=== PATIENT | female | born 1950 | race Caucasian/White ===

== ENCOUNTER 2016-10-22 07:58 | Outpatient (CLI) | payer MEDICARE | END 2016-10-22 07:59 | disposition home or self-care (01) | DX: E78.00 Pure hypercholesterolemia, unspecified (principal); K52.9 Noninfective gastroenteritis and colitis, unspecified; L40.9 Psoriasis, unspecified ==

== ENCOUNTER 2017-01-31 10:06 | Outpatient (CLI) | payer MEDICARE ==
--- NOTE | 2017-02-02 08:06 | Mammography Report ---
DIGITAL SCREENING MAMMOGRAM: 01/31/2017 CLINICAL INDICATION: A 66-year-old for screening. COMPARISON: 08/2015, 08/2014, 07/2013, 07/2012, 07/2011, 05/2010, 05/2009, 04/2008, 04/2007 TECHNIQUE: Routine CC and MLO projections were obtained of the breasts. FINDINGS: Scattered fibroglandular tissue is present within the breasts. There are no dominant mally s, suspicious microcalcifications, or secondary signs of malignancy. In comparison to the previous st udies, there are no significant changes. ASSESSMENT: NO MAMMOGRAPHIC EVIDENCE OF MALIGNANCY. NO SIGNIFICANT INTERVAL CHANGES. RECOMMENDATION: Screening mammography is recommended annually. BIRADS category 1 - negative. STANDARD QUALIFYING STATEMENTS 1. This examination was reviewed with the aid of Computed-Aided Detection (CAD). 2. A negative or benign imaging report should not delay biopsy if clinically suspicious findings are present. Consider surgical consultation if warranted. More than 5% of cancers are not identified by i maging. 3. Dense breasts may obscure an underlying neoplasm. JOB #: [id number] EXT JOB #:[id number]
== END 2017-01-31 10:07 | disposition home or self-care (01) ==
LOC: DI 10:06
PROVIDERS: ATTEND Physician Assistant Medical
DX: Z12.31 Encounter for screening mammogram for malignant neoplasm of breast (principal)
CPT/HCPCS: 77067

== ENCOUNTER 2017-11-07 10:12 | Outpatient (CLI) | payer MEDICARE ==
--- NOTE | 2017-11-07 15:33 | DEXA Report ---
DEXA SCAN: 11/07/2017 CLINICAL INDICATION: Bone disorder. TECHNIQUE: Dual energy x-ray absorptiometry (DXA) was performed on a [employer] system. Regions measured are the AP spine, femoral neck, and, if needed, forearm. COMPARISON: None. In accordance with the International Society for Clinical Densitometry (ISCD) guidelines, data from previous exams may be reanalyzed using current recommendations and techniques. This is done to allow a more accurate basis for comparison with the current study. FINDINGS Data for the lumbar spine is as follows: REGION BMD (g/cm/cm) T-SCORE Z-SCORE L1 0.938 -1.6 0.0 L2 1.017 -1.5 0.0 L3 1.102 -0.8 0.7 L4 1.042 -1.3 0.3 L1-L4 1.031 -1.2 0.3 NOTE: All evaluable vertebrae are used for classification. Data for the hip is as follows: REGION BMD (g/cm/cm) T-SCORE Z-SCORE Neck 0.885 -1.1 0.5 TOTAL 0.915 -0.7 0.6 NOTE: The femoral neck or total proximal femur, whichever is lowest, is used for classification. IMPRESSION WHO CLASSIFICATION BASED ON THE INTERNATIONAL REFERENCE STANDARD IS OSTEOPENIA. FRACTURE RISK IS INCREASED. RECOMMENDATION: Patients with diagnosis of osteoporosis or osteopenia should have regular bone mineral density assessment. For those eligible for Medicare, routine testing is allowed once every 2 years. Testing frequency can be increased for patients who have rapidly progressing disease or for those who are receiving medical therapy to restore bone mass. COMMENT World Health Organization (WHO) definitions for osteoporosis and osteopenia: NORMAL BMD: T-score at 1.0 or higher, fracture risk is low. OSTEOPENIA BMD: T-score between 1.0 and -2.5, fracture risk is increased. OSTEOPOROSIS BMD: T-score at 2.5 or lower, fracture risk high. National Osteoporosis Foundation recommends: 1. Obtain adequate dietary calcium (at least 1200 mg per day) and vitamin D (400 -800 international units per day). 2. Participate, as appropriate, in regular weightbearing and muscle- strengthening exercise. 3. Avoid tobacco use and reduce alcohol and caffeine intake. 4. For more detailed information see the website at www.NOF.org. TD: 11/07/2017 10:56 MTDDeon
== END 2017-11-07 10:13 | disposition home or self-care (01) ==
LOC: DI 10:12
PROVIDERS: ATTEND Physician Assistant Medical
DX: M85.89 Other specified disorders of bone density and structure, multiple sites (principal)
CPT/HCPCS: 77080

== ENCOUNTER 2017-12-13 08:38 | Outpatient (CLI) | payer MEDICARE ==
[2017-12-13 08:57] LABS: BASOPHILS # (AUTO) 0.1 10^3/uL (0.0-0.1); BASOPHILS % (AUTO) 0.7 %; EOSINOPHILS # (AUTO) 0.1 10^3/uL (0.0-0.7); EOSINOPHILS % (AUTO) 1.8 %; HGB - HEMOGLOBIN 14.4 g/dL (12.0-16.0); LYMPHOCYTES # (AUTO) 1.3 10^3/uL (1.5-3.5); LYMPHOCYTES % (AUTO) 18.9 %; MEAN CORPUSCULAR HGB CONC 33.8 g/dL (32.0-36.0); MEAN CORPUSCULAR VOLUME 94.8 fL (81.0-99.0); MEAN PLATELET VOLUME 8.2 fL (7.9-10.8); MONOCYTES # (AUTO) 0.6 10^3/uL (0.0-1.0); MONOCYTES % (AUTO) 9.2 %; NEUTROPHILS # (AUTO) 4.7 10^3/uL (1.5-6.6); NEUTROPHILS % (AUTO) 69.4 %; PLT - PLATELET COUNT 203 10^3/uL (130-450); RED CELL DISTRIBUTION WIDTH 12.7 % (12.0-15.0); WHITE BLOOD COUNT 6.8 x10^3/uL (4.8-10.8)
[2017-12-13 09:13] LABS: ALBUMIN 4.2 g/dL (3.2-5.5); ALBUMIN/GLOBULIN RATIO 1.6 (1.0-2.2); ALKALINE PHOSPHATASE 62 IU/L (42-121); ALT ALANINE AMINOTRANSFERASE 24 IU/L (10-60); AST ASPARTATE AMINOTRANSFERASE 22 IU/L (10-42); BUN - BLOOD UREA NITROGEN 17 mg/dL (6-20); CALCIUM 9.3 mg/dL (8.5-10.3); CARBON DIOXIDE - CO2 28 mmol/L (21-32); CHLORIDE 102 mmol/L (101-111); CHOL/HDL RATIO 3.7 (<4.4); CHOLESTEROL 265 mg/dL; CREATININE 0.7 mg/dL (0.4-1.0); GFR - MDRD 83 (>89); GLUCOSE 101 mg/dL (70-100); HDL CHOLESTEROL 72 mg/dL; LDL CHOLESTEROL,CALCULATED 167 mg/dL; LDL/HDL RATIO 2.3 (<4.4); SODIUM 138 mmol/L (135-145); TOTAL PROTEIN 6.9 g/dL (6.7-8.2); VLDL CHOLESTEROL 26 mg/dL
== END 2017-12-13 08:39 | disposition home or self-care (01) ==
LOC: LAB 08:38
PROVIDERS: ATTEND Physician Assistant Medical
DX: E78.5 Hyperlipidemia, unspecified (principal); K52.9 Noninfective gastroenteritis and colitis, unspecified
CPT/HCPCS: 36415; 80053; 80061; 83721; 85025

== ENCOUNTER 2018-04-25 09:53 | Outpatient (CLI) | payer MEDICARE ==
--- NOTE | 2018-04-26 14:38 | Mammography Report ---
Reason: SCREENING MAMMO Procedure Date: 04/25/2018 Accession Number: [id number] / [id number] Procedure: PAU - Screening Mammo w/Jaime CPT Code: FULL RESULT: EXAM: Screening Mammo w/Jaime DATE: 04/25/2018 10:37 AM CLINICAL HISTORY: 67-year-old female presents for screening mammogram. TECHNIQUE: Bilateral CC and MLO views were obtained. COMPARISON: 01/31/2017, 09/01/2015, 08/26/2014, 08/13/2013. FINDINGS: The breasts demonstrate scattered fibroglandular densities bilaterally. No suspicious masses, clustered microcalcifications, or regions of architectural distortion are identified. IMPRESSION: Negative examination RECOMMENDATION: Routine annual screening unless otherwise clinically indicated. BIRADS CATEGORY 1: Negative STANDARD QUALIFYING STATEMENTS: 1. This examination was not reviewed with the aid of Computer-Aided Detection (CAD). 2. A negative or benign imaging report should not delay biopsy if clinically suspicious findings are present. Consider surgical consultation if warrented. More than 5% of cancers are not identified by imaging. 3. Dense breasts may obscure an underlying neoplasm. 4. This examination was reviewed with the aid of 3D breast imaging (tomosynthesis).
== END 2018-04-25 09:54 | disposition home or self-care (01) ==
LOC: DI 09:53
DX: Z12.31 Encounter for screening mammogram for malignant neoplasm of breast (principal)
CPT/HCPCS: 77063; 77067

== ENCOUNTER 2018-05-29 15:25 | Outpatient (CLI) | payer MEDICARE ==
--- NOTE | 2018-05-30 13:00 | Ultrasound Report ---
Reason: CAROTID ARTERY STENOSIS Procedure Date: 05/29/2018 Accession Number: [id number] / [id number] Procedure: US - Carotid Doppler Complete CPT Code: FULL RESULT: EXAM: BILATERAL CAROTID AND VERTEBRAL ARTERY DUPLEX DOPPLER ULTRASOUND: EXAM DATE: 05/29/2018 05:08 PM CLINICAL HISTORY: CAROTID ARTERY STENOSIS. COMPARISON: CAROTID DOPPLER COMPLETE 07/29/2015 8:32 AM. TECHNIQUE: Grayscale imaging, color Doppler, and duplex spectral Doppler were used to evaluate the carotid and vertebral arteries bilaterally. Static images were obtained. FINDINGS: Visually, there is focal less than 50% atherosclerosis in the carotid bulb. The left common carotid as well as the carotid bulb region demonstrate focal shadowing atherosclerosis, which is difficult to evaluate in the region of the bulb given calcification. Normal antegrade flow is present in bilateral vertebral arteries. VELOCITIES (cm/sec): Right CCA mid: PSV 60.5 cm/sec CCA dist: PSV 52.1 cm/sec ICA prox: PSV 63.9 cm/sec, EDV 15.7 cm/sec ICA mid: PSV 78.4 cm/sec, EDV 20.2 cm/sec ICA dist: PSV 91.3 cm/sec, EDV 20.7 cm/sec ECA: PSV 73.9 cm/sec Vert: PSV 48.7 cm/sec ICA/CCA: 1.75 Left CCA mid: PSV 58.3 cm/sec CCA dist: PSV 53.2 cm/sec ICA prox: PSV 79.0 cm/sec, EDV 17.7 cm/sec ICA mid: PSV 81.5 cm/sec, EDV 23.5 cm/sec ICA dist: PSV 156.8 cm/sec, EDV 18.7 cm/sec ECA: PSV 155.5 cm/sec Vert: PSV 52.9 cm/sec ICA/CCA: 2.94 ICA diameter stenosis: Right: <50% by velocity and <70% by NASCET criteria. Left: 50-69% by velocity and <70% by NASCET criteria. IMPRESSION: 1. Approximately 50% focal bilateral carotid artery predominantly in the carotid bulbs. 2. In the right carotid artery there are no elevated carotid artery velocities to suggest hemodynamically significant stenosis. 3. In the left carotid artery there are elevated distal internal carotid artery velocities suggestive of less than 70% stenosis, likely closer to 50-60% stenosis. 4. Normal antegrade flow is present in bilateral vertebral arteries. General Recommendations: Stenosis =50% ICA - Follow-up ultrasound 6-12 months Stenosis <50% ICA - High Risk Patient with plaque - Follow-up ultrasound 1-2 years Normal Study but High Risk Patient - Follow-up ultrasound 3-5 years Management recommendations and diagnostic criteria are based on current IAC endorsed standards in Carotid Artery Stenosis: Grayscale and Doppler Ultrasound Diagnosis. Validated velocity measurements with angiographic measurements and velocity criteria are extrapolated from diameter data as defined by the Society of Radiologists in Ultrasound Consensus Conference Radiology 2003; 229;340-346. RADIA
== END 2018-05-29 15:26 | disposition home or self-care (01) ==
LOC: DI 15:25
PROVIDERS: ATTEND Physician Assistant Medical
DX: I65.22 Occlusion and stenosis of left carotid artery (principal)
CPT/HCPCS: 93880

== ENCOUNTER 2018-06-16 12:12 | Emergency (ER) | payer MEDICARE ==
[2018-06-16] MEDS ORDERED: ONDANSETRON ODT 4 MG TABLET TL STA (13:53)
--- NOTE | 2018-06-16 13:55 | ED Physician Documentation ---
PD HPI FOCAL NEURO - Stated complaint Stated Complaint: DIZZY/NAUSEA - Chief complaint Chief Complaint: Neuro - History obtained from History obtained from: Patient - History of Present Illness Timing - onset: Today (She woke up this morning with what she initially said was vertigo but her description is more of a disequilibrium. She feels off balance especially if she puts her head back or bends over. It does get worse with rotation of the head but the other 2 motions are worse for her. She took meclizine twice which helped a bit but did not resolve it. She feels nauseous with it and has a mild frontal headache with it. She recently had an abnormal carotid ultrasound with some plaquing but no hemodynamically significant stenosis. She is on aspirin. She is on no prescription medications. She noted that her blood pressure was high at home.) Review of Systems Ten Systems: 10 systems reviewed and negative Constitutional: denies: Fever, Chills Ears: denies: Loss of hearing, Ear pain, Drainage/discharge Nose: denies: Rhinorrhea / runny nose, Congestion Throat: denies: Sore throat Cardiac: denies: Chest pain / pressure, Palpitations PD PAST MEDICAL HISTORY - Present Medications Home Medications: Ambulatory Orders Medication Instructions Recorded Confirmed Alprazolam [Xanax] 0.5 mg PO DAILY PRN 09/19/14 09/19/14 Biotin 1 mg PO BID 09/19/14 09/19/14 Simvastatin 1 mg ORAL DAILY 09/19/14 09/19/14 Vit A and D3 in Cod Liver Oil [Cod 1 each PO DAILY 09/19/14 09/19/14 Liver Oil Softgel] - Allergies Allergies/Adverse Reactions: Allergies Allergy/AdvReac Type Severity Reaction Status Date / Time Penicillins AdvReac Nausea Verified 06/16/18 12:38 PD ED PE NORMAL - Vitals Vital signs reviewed: Yes - General General: Alert and oriented X 3, No acute distress - HEENT HEENT: PERRL, EOMI, Ears normal, Other (She has no nystagmus) - Neck Neck: Supple, no meningeal sign, No bony TTP - Cardiac Cardiac: RRR, No murmur - Respiratory Respiratory: No respiratory distress, Clear bilaterally - Abdomen Abdomen: Soft, Non tender - Back Back: No CVA TTP, No spinal TTP - Extremities Extremities: No deformity, No tenderness to palpate, No edema, No calf tenderness / cord - Neuro Neuro: Alert and oriented X 3, Normal speech, Other (Normal finger to nose and heel to spencer testing) Eye Opening: Spontaneous Motor: Obeys Commands Verbal: Oriented GCS Score: 15 - Psych Psych: Normal mood, Normal affect NIHSS - Time Time: 13:50 - Level of Consciousness Level of consciousness: (0) Alert, Keenly responsive LOC Questions: (0) Answers both Q's correct LOC Commands: (0) Performs both correctly - Gaze Best Gaze: (0) Normal - Visual Visual: (0) No loss - Facial Palsy Facial Palsy: (0) Normal, symmetrical movement - Motor Arms (both separate) Motor Arm (right): (0) No drift Motor Arm (left): (0) No drift - Motor Legs (both separate) Motor Leg (right): (0) No drift Motor Leg (left): (0) No drift - Limb Ataxia Limb Ataxia: (0) Absent - Sensory Sensory: (0) Normal - Best Language Best Language: (0) No aphasia - Dysarthria Dysarthria: (0) Normal - Extinction and Inattention (formally neg Extinction and inattention: (0) No abnormality - Total Score/Results Total Score/Result: 0 Results - Vitals Vitals: Vital Signs - 24 hr 06/16/18 12:35 Temperature 36.4 C L Heart Rate 80 Respiratory 20 Rate Blood Pressure 172/78 H O2 Saturation 99 Oxygen O2 Source Room air - Labs Labs: Laboratory Tests 06/16/18 06/16/18 06/16/18 14:00 14:00 14:00 WBC 7.4 RBC 4.23 Hgb 13.6 Hct 39.6 MCV 93.8 MCH 32.3 H MCHC 34.4 RDW 13.3 Plt Count 202 MPV 8.0 Neut # (Auto) 5.8 Lymph # (Auto) 0.9 L [place] # (Auto) 0.5 Eos # (Auto) 0.0 Baso # (Auto) 0.0 Absolute Nucleated RBC 0.00 Nucleated RBC % 0.0 Sodium 129 L Potassium 4.0 Chloride 92 L Carbon Dioxide 26 Anion Gap 11.0 BUN 14 Creatinine 0.6 Estimated GFR (MDRD) 99 Glucose 103 H Calcium 9.2 Total Bilirubin 1.2 H AST 31 ALT 32 Alkaline Phosphatase 54 Total Protein 6.9 Albumin 4.6 Globulin 2.3 Albumin/Globulin Ratio 2.0 Lipase 24 Urine Color YELLOW Urine Clarity CLEAR Urine pH 6.5 Ur Specific [place] 1.010 Urine Protein NEGATIVE Urine Glucose (UA) NEGATIVE Urine Ketones 15 H Urine Occult Blood NEGATIVE Urine Nitrite NEGATIVE Urine Bilirubin NEGATIVE Urine Urobilinogen 0.2 (NORMAL) Ur Leukocyte Esterase TRACE H Urine RBC 0-5 Urine WBC 0-3 Ur Squamous Epith Cells RARE Squamous Urine Bacteria None Seen Ur Microscopic Review INDICATED Urine Culture Comments INDICATED PD MEDICAL DECISION MAKING - ED course ED course: This is a 68-year-old woman with an acute disequilibrium. She has a normal neurologic examination. CT of the head was normal. Labs show modest dehydration with mild hyponatremia. She has had hyponatremia in the past but this is a worse value than she has had in the past. She was feeling slightly better after IV Zofran. After the administration of IV saline, she felt completely better and therefore other advanced imaging was not pursued for this disequilibrium. Departure - Departure Disposition: 01 Home, Self Care Clinical Impression: Dizziness, Dehydration, Hyponatremia Condition: Good Record reviewed to determine appropriate education?: Yes Instructions: ED Dehydration Comments: Follow-up with VIRGILIO Godoy early next week, ideally repeat sodium level prior to your trip. Return for new or worsening symptoms. Your blood pressure was elevated today on check into the emergency department. This does not mean that you have hypertension, it is a common phenomenon to come to the emergency department and have elevated blood pressure. I recommend that you see your primary care physician within the week to have it rechecked when you are feeling better.
[2018-06-16 14:03] LABS: BASOPHILS % (AUTO) 0.7 %; EOSINOPHILS % (AUTO) 0.6 %; HGB - HEMOGLOBIN 13.6 g/dL (12.0-16.0); LYMPHOCYTES # (AUTO) 0.9 10^3/uL (1.5-3.5); LYMPHOCYTES % (AUTO) 12.1 %; MEAN CORPUSCULAR HEMOGLOBIN 32.3 pg (27.0-31.0); MEAN CORPUSCULAR HGB CONC 34.4 g/dL (32.0-36.0); MEAN CORPUSCULAR VOLUME 93.8 fL (81.0-99.0); MONOCYTES # (AUTO) 0.5 10^3/uL (0.0-1.0); MONOCYTES % (AUTO) 7.4 %; NEUTROPHILS # (AUTO) 5.8 10^3/uL (1.5-6.6); NEUTROPHILS % (AUTO) 79.2 %; PLT - PLATELET COUNT 202 10^3/uL (130-450); RED BLOOD COUNT 4.23 10^6/uL (4.20-5.40); RED CELL DISTRIBUTION WIDTH 13.3 % (12.0-15.0); WHITE BLOOD COUNT 7.4 x10^3/uL (4.8-10.8)
[2018-06-16 14:16] LABS: ALBUMIN 4.6 g/dL (3.2-5.5); BILIRUBIN,TOTAL 1.2 mg/dL (0.2-1.0); CALCIUM 9.2 mg/dL (8.5-10.3); CREATININE 0.6 mg/dL (0.4-1.0); TOTAL PROTEIN 6.9 g/dL (6.7-8.2)
[2018-06-16 14:23] LABS: BILIRUBIN,URINE NEGATIVE (NEGATIVE); GLUCOSE, URINE (UA) NEGATIVE (NEGATIVE); KETONES,URINE (UA) 15 mg/dL (NEGATIVE); LEUKOCYTE ESTERASE, URINE TRACE (NEGATIVE); NITRITE,URINE NEGATIVE (NEGATIVE); OCCULT BLOOD,URINE NEGATIVE (NEGATIVE); PH,URINE 6.5 PH (5.0-7.5); PROTEIN,URINE NEGATIVE (NEGATIVE); UROBILINOGEN,URINE 0.2 (NORMAL) E.U./dL (NORMAL)
[2018-06-16 14:27] LABS: CLARITY,URINE CLEAR (CLEAR)
--- NOTE | 2018-06-16 14:29 | CT Report ---
Reason: dysequilibriuum Procedure Date: 06/16/2018 Accession Number: [id number] / [id number] Procedure: CT - Head W/O CPT Code: FULL RESULT: EXAM: CT HEAD EXAM DATE: 06/16/2018 02:01 PM. CLINICAL HISTORY: Dysequilibriuum. COMPARISON: None. TECHNIQUE: Multiaxial CT images were obtained from the foramen magnum to the vertex. Reformats: Sagittal and coronal. IV contrast: None. In accordance with CT protocol optimization, one or more of the following dose reduction techniques were utilized for this exam: automated exposure control, adjustment of mA and/or KV based on patient size, or use of iterative reconstructive technique. FINDINGS: Parenchyma: No intraparenchymal hemorrhage. No evidence of mass, midline shift, or CT findings of infarction. Sinclair-white differentiation is distinct. Extraaxial Spaces: Normal for age. No subdural or epidural collections identified. Ventricles: Normal in size and position. Sinuses and Orbits: Imaged paranasal sinuses, orbits, and mastoids show no significant abnormality. Bones: No evidence of fracture or calvarial defect. Other: None. IMPRESSION: Negative for an acute or focal intracranial abnormality by noncontrast CT. RADIA
[2018-06-16 14:32] LABS: BACTERIA,URINE None Seen /HPF (None Seen); RBC,URINE 0-5 /HPF (0-5); SQUAMOUS EPITHELIAL CELL,UR RARE Squamous (<= Few)
[2018-06-16] MEDS ORDERED: SODIUM CHLORIDE 0.9% 1,000 ML IV ONE (14:36)
[2018-06-16 16:26] VITALS: BP 166/54
== END 2018-06-16 16:27 | disposition home or self-care (01) ==
LOC: ED 12:12
DX: E86.0 Dehydration (principal); E87.1 Hypo-osmolality and hyponatremia; R42 Dizziness and giddiness; R03.0 Elevated blood-pressure reading, without diagnosis of hypertension; Z79.82 Long term (current) use of aspirin
CPT/HCPCS: 36415; 70450; 80053; 81001; 83690; 85025; 87086; 99284; Q0162; 81003

== ENCOUNTER 2018-06-20 08:00 | Outpatient (CLI) | payer MEDICARE ==
[2018-06-20 19:38] LABS: CALCIUM 9.3 mg/dL (8.5-10.3); CREATININE 0.7 mg/dL (0.4-1.0)
== END 2018-06-20 23:59 | disposition home or self-care (01) ==
LOC: LAB.WCP 08:00
PROVIDERS: ATTEND Physician Assistant Medical
DX: E87.1 Hypo-osmolality and hyponatremia (principal)
CPT/HCPCS: 80048

== ENCOUNTER 2018-09-06 16:01 | Emergency (ER) | payer MEDICARE ==
[2018-09-06] MEDS ORDERED: MECLIZINE 12.5 MG TABLET PO STA (17:56)
[2018-09-06 18:01] LABS: BASOPHILS # (AUTO) 0.1 10^3/uL (0.0-0.1); BASOPHILS % (AUTO) 0.6 %; EOSINOPHILS % (AUTO) 0.4 %; HGB - HEMOGLOBIN 13.6 g/dL (12.0-16.0); LYMPHOCYTES # (AUTO) 1.3 10^3/uL (1.5-3.5); LYMPHOCYTES % (AUTO) 15.7 %; MEAN CORPUSCULAR HEMOGLOBIN 31.7 pg (27.0-31.0); MEAN CORPUSCULAR HGB CONC 33.6 g/dL (32.0-36.0); MEAN CORPUSCULAR VOLUME 94.3 fL (81.0-99.0); MEAN PLATELET VOLUME 8.5 fL (7.9-10.8); MONOCYTES # (AUTO) 0.5 10^3/uL (0.0-1.0); MONOCYTES % (AUTO) 6.3 %; NEUTROPHILS # (AUTO) 6.2 10^3/uL (1.5-6.6); PLT - PLATELET COUNT 208 10^3/uL (130-450); RED BLOOD COUNT 4.29 10^6/uL (4.20-5.40); RED CELL DISTRIBUTION WIDTH 13.1 % (12.0-15.0); WHITE BLOOD COUNT 8.1 x10^3/uL (4.8-10.8)
[2018-09-06 18:18] LABS: ALBUMIN 4.1 g/dL (3.2-5.5); ALBUMIN/GLOBULIN RATIO 1.6 (1.0-2.2); BILIRUBIN,TOTAL 0.8 mg/dL (0.2-1.0); CREATININE 0.5 mg/dL (0.4-1.0); TOTAL PROTEIN 6.6 g/dL (6.7-8.2)
[2018-09-06] MEDS ORDERED: ONDANSETRON ODT 4 MG TABLET TL STA (18:41)
--- NOTE | 2018-09-06 18:50 | ED Physician Documentation ---
History of Present Illness - Stated complaint Stated Complaint: DIZZY/HIGH BP - Chief complaint Chief Complaint: Neuro - History obtained from History obtained from: Patient - History of Present Illness Timing: Today Pain level max: 0 Pain level now: 0 - Additonal information Additional information: Patient is a 68-year-old female who complains that she feels like the room is spinning today. Has had high blood pressure for several months, states her blood pressure is normally 150-160 but has been getting progressively higher. She has had vertigo in the past as well and states that this feels similar. Tried the Luis maneuver without relief. Worse with movement of her head and standing. 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 - Present Medications Home Medications: Ambulatory Orders Medication Instructions Recorded Confirmed Alprazolam [Xanax] 0.5 mg PO DAILY PRN 09/19/14 09/19/14 Biotin 1 mg PO BID 09/19/14 09/19/14 Simvastatin 1 mg ORAL DAILY 09/19/14 09/19/14 Vit A and D3 in Cod Liver Oil [Cod 1 each PO DAILY 09/19/14 09/19/14 Liver Oil Softgel] Meclizine [Antivert] 12.5 - 25 mg PO Q6H PRN #20 tablet 09/06/18 Ondansetron Odt [Zofran] 4 mg TL Q6H PRN #10 tablet 09/06/18 - Allergies Allergies/Adverse Reactions: Allergies Allergy/AdvReac Type Severity Reaction Status Date / Time Penicillins AdvReac Nausea Verified 06/16/18 12:38 - Living Situation Living Situation: reports: With family Living Arrangement: reports: At home - Social History Does the pt smoke?: No Smoking Status: Never smoker Does the pt drink ETOH?: Yes Does the pt have substance abuse?: No - Immunizations Immunizations are current?: Yes - POLST Patient has POLST: No PD ED PE NORMAL - Vitals Vital signs reviewed: Yes - General General: Alert and oriented X 3, No acute distress - HEENT HEENT: PERRL, Ears normal, Moist mucous membranes, Pharynx benign - Neck Neck: Supple, no meningeal sign - Cardiac Cardiac: RRR, Strong equal pulses - Respiratory Respiratory: No respiratory distress, Clear bilaterally - Abdomen Abdomen: Soft, Non tender, Non distended - Back Back: No spinal TTP - Derm Derm: Warm and dry, No rash - Extremities Extremities: No edema, No calf tenderness / cord - Neuro Neuro: Alert and oriented X 3, superintendent measurement 2-12 intact, No motor deficit, No sensory deficit, Normal speech, Other (Horizontal nystagmus to the right. Positive Hallpike to the right. Normal cerebellar test) - Psych Psych: Normal mood, Normal affect Results - Vitals Vitals: Vital Signs - 24 hr 09/06/18 09/06/18 09/06/18 16:06 18:06 20:01 Temperature 36.5 C Heart Rate 80 78 67 Respiratory 18 18 18 Rate Blood Pressure 179/70 H 168/78 H 139/68 H O2 Saturation 100 99 99 Oxygen O2 Source Room air - Labs Labs: Laboratory Tests 09/06/18 09/06/18 09/06/18 17:52 17:52 17:52 WBC 8.1 RBC 4.29 Hgb 13.6 Hct 40.5 MCV 94.3 MCH 31.7 H MCHC 33.6 RDW 13.1 Plt Count 208 MPV 8.5 Neut # (Auto) 6.2 Lymph # (Auto) 1.3 L [place] # (Auto) 0.5 Eos # (Auto) 0.0 Baso # (Auto) 0.1 Absolute Nucleated RBC 0.00 Nucleated RBC % 0.0 Sodium 127 L Potassium 4.0 Chloride 94 L Carbon Dioxide 21 Anion Gap 12.0 BUN 18 Creatinine 0.5 Estimated GFR (MDRD) 122 Glucose 125 H Calcium 9.0 Total Bilirubin 0.8 AST 25 ALT 24 Alkaline Phosphatase 54 Troponin I < 0.04 Total Protein 6.6 L Albumin 4.1 Globulin 2.5 Albumin/Globulin Ratio 1.6 Lipase 31 PD MEDICAL DECISION MAKING - ED course Complexity details: considered differential, d/w patient ED course: 68-year-old female presents to the emergency department with what appears to be vertigo. She is also found to be dehydrated and slightly hyponatremic, though not too far from her baseline. Feels better after IV fluids, Zofran and meclizine. We will continue supportive care and follow-up with her doctor. No evidence of stroke. No evidence of tumor. Ambulating with a steady gait. Patient counseled regarding signs and symptoms for which I believe and urgent re-evaluation would be necessary. Patient with good understanding of and agreem ent to plan and is comfortable going home at this time This document was made in part using voice recognition software. While efforts are made to proofread this document, sound alike and grammatical errors may occur. Departure - Departure Disposition: Home, Self Care Clinical Impression: Dehydration, Hyponatremia, Vertigo Condition: Good Instructions: ED Dehydration, ED Vertigo Unspecified Follow-Up: Shantel Godoy PA-C [Primary Care Provider] - Within 1 week Prescriptions: Meclizine [Antivert] 12.5 - 25 mg PO Q6H PRN #20 tablet PRN Reason: Vertigo Ondansetron Odt [Zofran] 4 mg TL Q6H PRN #10 tablet PRN Reason: Nausea / Vomiting Comments: Return if you worsen. Drink plenty of fluids and rest. This should improve with the medications. Discharge Date/Time: 09/06/18 20:38
[2018-09-06] MEDS ORDERED: SODIUM CHLORIDE 0.9% 1,000 ML IV ONE (18:53)
[2018-09-06 20:01] VITALS: BP 139/68
== END 2018-09-06 20:38 | disposition home or self-care (01) ==
LOC: ED 16:01
DX: E86.0 Dehydration (principal); E87.1 Hypo-osmolality and hyponatremia; R42 Dizziness and giddiness
CPT/HCPCS: 36415; 80053; 83690; 84484; 85025; 93005; 96360; 99283; 99284; A9270; Q0162

== ENCOUNTER 2018-09-13 10:40 | Outpatient (CLI) | payer MEDICARE ==
[2018-09-13 13:14] LABS: CALCIUM 8.7 mg/dL (8.5-10.3); CREATININE 0.5 mg/dL (0.4-1.0)
== END 2018-09-13 10:41 | disposition home or self-care (01) ==
LOC: LAB.WCP 10:40
PROVIDERS: ATTEND Physician Assistant Medical
DX: I10 Essential (primary) hypertension (principal)
CPT/HCPCS: 36415; 80048

== ENCOUNTER 2018-11-01 10:14 | Outpatient (CLI) | payer MEDICARE ==
[2018-11-01 13:38] LABS: CALCIUM 9.5 mg/dL (8.5-10.3); CREATININE 0.6 mg/dL (0.4-1.0)
== END 2018-11-01 23:59 | disposition home or self-care (01) ==
LOC: LAB.WCP 10:14
PROVIDERS: ATTEND Physician Assistant Medical
DX: E87.1 Hypo-osmolality and hyponatremia (principal)
CPT/HCPCS: 36415; 80048

== ENCOUNTER 2018-12-22 08:00 | Outpatient (CLI) | payer MEDICARE ==
[2018-12-22 12:41] LABS: ALBUMIN 4.3 g/dL (3.2-5.5); ALBUMIN/GLOBULIN RATIO 1.6 (1.0-2.2); ALKALINE PHOSPHATASE 51 IU/L (42-121); ALT ALANINE AMINOTRANSFERASE 23 IU/L (10-60); AST ASPARTATE AMINOTRANSFERASE 26 IU/L (10-42); BUN - BLOOD UREA NITROGEN 15 mg/dL (6-20); CALCIUM 9.6 mg/dL (8.5-10.3); CARBON DIOXIDE - CO2 26 mmol/L (21-32); CHLORIDE 94 mmol/L (101-111); CHOL/HDL RATIO 2.4 (<4.4); CHOLESTEROL 245 mg/dL; CREATININE 0.7 mg/dL (0.4-1.0); GFR - MDRD 83 (>89); GLUCOSE 95 mg/dL (70-100); HDL CHOLESTEROL 102 mg/dL; LDL CHOLESTEROL,CALCULATED 133 mg/dL; LDL/HDL RATIO 1.3 (<4.4); SODIUM 134 mmol/L (135-145); VLDL CHOLESTEROL 10 mg/dL
== END 2018-12-22 23:59 | disposition home or self-care (01) ==
LOC: LAB.WCP 08:00
PROVIDERS: ATTEND Physician Assistant Medical
DX: E78.5 Hyperlipidemia, unspecified (principal)
CPT/HCPCS: 36415; 80053; 80061; 83721

== ENCOUNTER 2019-02-12 13:18 | Emergency (ER) | payer MEDICARE ==
[2019-02-12 13:27] VITALS: BP 139/51
--- NOTE | 2019-02-12 14:34 | ED Physician Documentation ---
History of Present Illness - Stated complaint Stated Complaint: SWOLLEN EYE - Chief complaint Chief Complaint: Heent - History obtained from History obtained from: Patient - Additonal information Additional information: Patient is a previously healthy 68-year-old female presenting with left upper eyelid swelling, erythema, and irritation over the past several days. Patient denies vision changes, conjunctivitis, abnormal drainage from the eye, other swelling or erythema, or other complaints.Patient has been treating with compresses and stye medication that is [id number]. Patient does wear glasses, but no contacts. Patient has not yet seen her primary care physician or construction equipment technician. No other improving or worsening factors noted. Review of Systems Eyes: reports: Irritation. 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 - Present Medications Home Medications: Ambulatory Orders Medication Instructions Recorded Confirmed Alprazolam [Xanax] 0.5 mg PO DAILY PRN 09/19/14 09/19/14 Biotin 1 mg PO BID 09/19/14 09/19/14 Simvastatin 1 mg ORAL DAILY 09/19/14 09/19/14 Vit A and D3 in Cod Liver Oil [Cod 1 each PO DAILY 09/19/14 09/19/14 Liver Oil Softgel] Meclizine [Antivert] 12.5 - 25 mg PO Q6H PRN #20 tablet 09/06/18 Ondansetron Odt [Zofran] 4 mg TL Q6H PRN #10 tablet 09/06/18 Erythromycin Base [Erythromycin 1 strip OP TID #1 gr 02/12/19 Ophthalmic Ointment] - Allergies Allergies/Adverse Reactions: Allergies Allergy/AdvReac Type Severity Reaction Status Date / Time Penicillins AdvReac Nausea Verified 06/16/18 12:38 - Social History Does the pt smoke?: No Smoking Status: Never smoker Does the pt drink ETOH?: Yes Does the pt have substance abuse?: No - Immunizations Immunizations are current?: Yes - POLST Patient has POLST: No PD ED PE NORMAL - Vitals Vital signs reviewed: Yes - General General: Alert and oriented X 3, No acute distress, Well developed/nourished - HEENT HEENT: Atraumatic, PERRL (Gross visual acuity intact. No nystagmus.No conjunctival injectionOr other globe abnormalities. No pre-or post septal cellulitic changes, periorbital swelling or ecchymosis. Patient has blepharitis changes to left upper eyelid only.), EOMI, Moist mucous membranes - Respiratory Respiratory: No respiratory distress - Derm Derm: Normal color, Warm and dry, No rash, Other (Except as stated above) - Extremities Extremities: No deformity, No tenderness to palpate - Neuro Neuro: Alert and oriented X 3, No motor deficit, No sensory deficit - Psych Psych: Normal mood, Normal affect Results - Vitals Vitals: Vital Signs - 24 hr 02/12/19 13:24 Temperature 36.3 C L Heart Rate 81 Respiratory 16 Rate Blood Pressure 139/51 H O2 Saturation 99 Oxygen O2 Source Room air PD MEDICAL DECISION MAKING - ED course Complexity details: considered differential, d/w patient ED course: Patient presenting with blepharitis changes to the left upper eyelid. Do not see evidence of globe injury, conjunctivitis, uveitis, iritis or other concerns for retinal or vitreous issues, as well as any changes that would indicate glaucoma. Do not find evidence of hordeolum or chalazion. Discussed etiology and supportive cares for such with patient including antibiotic ointment, as well as ophthalmology and primary care follow-up. Patient voiced understanding and is comfortable with discharge plan. Departure - Departure Disposition: 01 Home, Self Care Clinical Impression: Blepharitis Qualifiers: Blepharitis type: unspecified type Laterality: left Eyelid: upper Qualified Code(s): H01.004 - Unspecified blepharitis left upper eyelid Condition: Good Instructions: Blepharitis Follow-Up: Shantel Godoy PA-C [Primary Care Provider] - Within 3 Days your,opthalmologist [Other] - Within 3 Days Prescriptions: Erythromycin Base [Erythromycin Ophthalmic Ointment] 1 strip OP TID #1 gr Comments: Recommend cool compresses and keeping eye clean. May use prescription antibiotic as prescribed. Please do not use further [id number] medications except for ibuprofen/Tylenol as needed. Recommend follow-up with your primary care physician and construction equipment technician the next 2 to 3 days. Return to ED sooner if experience worsening symptoms or have other concerns.
== END 2019-02-12 14:49 | disposition home or self-care (01) ==
LOC: ED 13:18
DX: H01.004 Unspecified blepharitis left upper eyelid (principal)
CPT/HCPCS: 99282; 99283

== ENCOUNTER 2019-07-24 08:22 | Outpatient (CLI) | payer MEDICARE ==
--- NOTE | 2019-07-24 08:58 | Mammography Report ---
Reason: SCREENING MAMMO Procedure Date: 07/24/2019 Accession Number: [id number] / [id number] Procedure: PAU - Screening Mammo w/Jaime CPT Code: Final Report FULL RESULT: EXAM: Screening Mammo w/Jaime DATE: 07/24/2019 8:44 AM CLINICAL HISTORY: Screening encounter. TECHNIQUE: (B) - Bilateral CC and MLO views were obtained. Right laterally exaggerated CC views obtained. COMPARISON: 04/25/2018 through 06/22/2010. PARENCHYMAL PATTERN: (A) - The breast(s) demonstrate(s) scattered fibroglandular densities. FINDINGS: There are no suspicious masses, calcifications, or areas of distortion. IMPRESSION: Negative examination. BI-RADS category 1. RECOMMENDATION: (ANNUAL) - Recommend routine annual screening mammography. BI-RADS CATEGORY: (1) - Negative. STANDARD QUALIFYING STATEMENTS: 1. This examination was not reviewed with the aid of Computer-Aided Detection (CAD). 2. A negative or benign imaging report should not preclude biopsy if clinically suspicious findings are present. 3. Dense breasts may obscure an underlying neoplasm. 4. This examination was reviewed with the aid of 3D breast imaging (tomosynthesis).
== END 2019-07-24 08:23 | disposition home or self-care (01) ==
LOC: DI 08:22
DX: Z12.31 Encounter for screening mammogram for malignant neoplasm of breast (principal)
CPT/HCPCS: 77063; 77067

== ENCOUNTER 2019-08-23 18:31 | Emergency (ER) | payer MEDICARE ==
[2019-08-23] MEDS ORDERED: ONDANSETRON 4 MG/2 ML VIAL IVP STA (18:57)
[2019-08-23] MEDS ORDERED: SODIUM CHLORIDE 0.9% 1,000 ML IV STA (18:57)
--- NOTE | 2019-08-23 19:00 | ED Physician Documentation ---
History of Present Illness - Stated complaint Stated Complaint: NAUSEA/HEADACHE/DIAH - Chief complaint Chief Complaint: Heent - History obtained from History obtained from: Patient (69-year-old general healthy presented to the emergency room with diarrhea for 1 day. According to the patient, she has watery explosive diarrhea 5 times a day. She feels dehydrated. She is trying to keep up with her fluid by drinking water and salt water but still feel weak. She is recently recovered from upper respiratory tract infection with sinus pressure. That has much improved over 1 week. There has been nausea sensation without vomiting. She has a trip coming up tomorrow to [place]. She want to make sure she is feeling better before she goes.) - History of Present Illness Timing: Today Review of Systems Ten Systems: 10 systems reviewed and negative Constitutional: reports: Reviewed and negative Eyes: reports: Reviewed and negative Ears: reports: Reviewed and negative Nose: reports: Reviewed and negative Throat: reports: Reviewed and negative Cardiac: reports: Reviewed and negative Respiratory: reports: Reviewed and negative GI: reports: Nausea, Diarrhea, Reviewed and negative : reports: Reviewed and negative Skin: reports: Reviewed and negative Musculoskeletal: reports: Reviewed and negative Neurologic: reports: Reviewed and negative Psychiatric: reports: Reviewed and negative Endocrine: reports: Reviewed and negative Immunocompromised: reports: Reviewed and negative PD PAST MEDICAL HISTORY - Past Medical History Past Medical 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 (Ovarian cyst surgery many years ago) - Past Surgical History Past Surgical History: Yes /PRICE CLERK: Oophrectomy - Present Medications Home Medications: Ambulatory Orders Medication Instructions Recorded Confirmed Aspirin Chewable [[place] Ra[place] 1 tab PO DAILY 08/23/19 08/23/19 Aspirin] Loperamide [Imodium] 2 mg PO ONCE #10 capsule 08/23/19 Ondansetron Odt [Zofran] 4 mg TL Q6H PRN #10 tablet 08/23/19 Triamterene/Hydrochlorothiazid 1 cap PO DAILY 08/23/19 08/23/19 [Triamterene-Hctz 37.5-25 mg Cp] - Allergies Allergies/Adverse Reactions: Allergies Allergy/AdvReac Type Severity Reaction Status Date / Time Penicillins AdvReac Nausea Verified 08/23/19 19:12 - Social History Does the pt smoke?: No Smoking Status: Never smoker Does the pt drink ETOH?: Yes Does the pt have substance abuse?: No - Immunizations Immunizations are current?: Yes - POLST Patient has POLST: No PD ED PE NORMAL - Vitals Vital signs reviewed: Yes - General General: Alert and oriented X 3, No acute distress - HEENT HEENT: Atraumatic, PERRL, EOMI, Other (Dry oral mucosa) - Neck Neck: Supple, no meningeal sign - Cardiac Cardiac: RRR, No murmur - Respiratory Respiratory: Clear bilaterally - Abdomen Abdomen: Normal bowel sounds, Soft, Non tender, Non distended - Female Female : Deferred - Derm Derm: Warm and dry - Extremities Extremities: No deformity - Neuro Neuro: Alert and oriented X 3 - Psych Psych: Normal mood, Normal affect Results - Vitals Vitals: Vital Signs - 24 hr 08/23/19 08/23/19 08/23/19 18:42 19:55 20:33 Temperature 37 C Heart Rate 76 70 74 Respiratory 18 16 15 Rate Blood Pressure 169/52 H 162/82 H 153/84 H O2 Saturation 99 100 99 Oxygen O2 Source Room air - Labs Labs: Laboratory Tests 08/23/19 08/23/19 08/23/19 19:06 19:06 19:25 WBC 8.8 RBC 4.13 L Hgb 13.2 Hct 39.2 MCV 94.9 MCH 32.0 H MCHC 33.7 RDW 12.9 Plt Count 237 MPV 9.9 Neut # (Auto) 6.6 Lymph # (Auto) 1.3 L [place] # (Auto) 0.7 Eos # (Auto) 0.1 Baso # (Auto) 0.1 Absolute Nucleated RBC 0.00 Nucleated RBC % 0.0 Sodium 128 L Potassium 3.6 Chloride 89 L Carbon Dioxide 27 Anion Gap 12.0 BUN 18 Creatinine 0.6 Estimated GFR (MDRD) 99 Glucose 146 H Calcium 8.8 Magnesium 1.8 Total Bilirubin 0.7 AST 56 H ALT 45 Alkaline Phosphatase 58 Total Protein 6.6 L Albumin 4.1 Globulin 2.5 Albumin/Globulin Ratio 1.6 Lipase 32 Urine Color YELLOW Urine Clarity CLEAR Urine pH 7.0 Ur Specific Reeder <=1.005 Urine Protein NEGATIVE Urine Glucose (UA) NEGATIVE Urine Ketones NEGATIVE Urine Occult Blood NEGATIVE Urine Nitrite NEGATIVE Urine Bilirubin NEGATIVE Urine Urobilinogen 0.2 (NORMAL) Ur Leukocyte Esterase NEGATIVE Ur Microscopic Review NOT INDICATED Urine Culture Comments NOT INDICATED PD MEDICAL DECISION MAKING - ED course Complexity details: d/w patient ED course: At 750 patient is reassessed. She is disclosed laboratories that essentially negative except mild hyponatremia. About 5 cc of normal saline has infused. Patient had a 1 dose of Zofran which has improved some of the nausea Sensation. At this time urinalysis pending. Patient is reassessed at 835, at this time she is feeling much improved with IV hydration, antiemetic, antidiarrheal. She came out of the restroom feeling well. We will talk about oral hydration and antinausea medicine while she is on a trip. She understood and agreed. She is asked to follow-up with her primary care doctor in the next 7 days also after she came back to [place]. At this time she is happy with her care. Departure - Departure Disposition: Home, Self Care Clinical Impression: Dehydration, Hyponatremia Diarrhea Qualifiers: Diarrhea type: unspecified type Qualified Code(s): R19.7 - Diarrhea, unspecified Condition: Stable Instructions: ED Dehydration Follow-Up: Shantel Godoy PA-C [Primary Care Provider] - Prescriptions: Loperamide [Imodium] 2 mg PO ONCE #10 capsule Ondansetron Odt [Zofran] 4 mg TL Q6H PRN #10 tablet PRN Reason: Nausea / Vomiting Comments: Please be sure to be hydrated and take antinausea medicine as needed every 6 hours. If there is worsening symptoms, return to the emergency room or call your doctor sooner than later. Discharge Date/Time: 08/23/19 20:50
[2019-08-23 19:20] LABS: BASOPHILS # (AUTO) 0.1 10^3/uL (0.0-0.1); BASOPHILS % (AUTO) 0.6 %; EOSINOPHILS # (AUTO) 0.1 10^3/uL (0.0-0.7); EOSINOPHILS % (AUTO) 0.8 %; HGB - HEMOGLOBIN 13.2 g/dL (12.0-16.0); LYMPHOCYTES # (AUTO) 1.3 10^3/uL (1.5-3.5); LYMPHOCYTES % (AUTO) 14.7 %; MEAN CORPUSCULAR HGB CONC 33.7 g/dL (32.0-36.0); MEAN CORPUSCULAR VOLUME 94.9 fL (81.0-99.0); MEAN PLATELET VOLUME 9.9 fL (7.9-10.8); MONOCYTES # (AUTO) 0.7 10^3/uL (0.0-1.0); MONOCYTES % (AUTO) 8.2 %; NEUTROPHILS # (AUTO) 6.6 10^3/uL (1.5-6.6); PLT - PLATELET COUNT 237 10^3/uL (130-450); RED BLOOD COUNT 4.13 10^6/uL (4.20-5.40); RED CELL DISTRIBUTION WIDTH 12.9 % (12.0-15.0); WHITE BLOOD COUNT 8.8 x10^3/uL (4.8-10.8)
[2019-08-23 19:27] LABS: ALBUMIN 4.1 g/dL (3.2-5.5); ALBUMIN/GLOBULIN RATIO 1.6 (1.0-2.2); BILIRUBIN,TOTAL 0.7 mg/dL (0.2-1.0); CALCIUM 8.8 mg/dL (8.5-10.3); CREATININE 0.6 mg/dL (0.4-1.0); MAGNESIUM 1.8 mg/dL (1.7-2.8); TOTAL PROTEIN 6.6 g/dL (6.7-8.2)
[2019-08-23 19:29] LABS: BILIRUBIN,URINE NEGATIVE (NEGATIVE); GLUCOSE, URINE (UA) NEGATIVE (NEGATIVE); KETONES,URINE (UA) NEGATIVE (NEGATIVE); LEUKOCYTE ESTERASE, URINE NEGATIVE (NEGATIVE); NITRITE,URINE NEGATIVE (NEGATIVE); OCCULT BLOOD,URINE NEGATIVE (NEGATIVE); PROTEIN,URINE NEGATIVE (NEGATIVE); UROBILINOGEN,URINE 0.2 (NORMAL) E.U./dL (NORMAL)
[2019-08-23 19:32] LABS: CLARITY,URINE CLEAR (CLEAR)
[2019-08-23] MEDS ORDERED: LOPERAMIDE 2 MG CAPSULE PO STA (19:52)
[2019-08-23] MEDS ORDERED: PROMETHAZINE INJ 12.5 MG in SODIUM CHLORIDE 0.9% 50 ML IV STA (19:52)
[2019-08-23 20:34] VITALS: BP 153/84
[2019-08-23] MEDS ORDERED: ONDANSETRON ODT 4 MG Prepack 2 TL PRN (20:41)
== END 2019-08-23 20:50 | disposition home or self-care (01) ==
LOC: ED 18:31
DX: E86.0 Dehydration (principal); E87.1 Hypo-osmolality and hyponatremia; R19.7 Diarrhea, unspecified; R11.0 Nausea; Z79.82 Long term (current) use of aspirin
CPT/HCPCS: 36415; 80053; 81003; 83690; 83735; 85025; 96361; 96365; 96375; 99283; 99284; A9270; J7040; 81001; 87086

== ENCOUNTER 2020-01-09 09:56 | Outpatient (CLI) | payer MEDICARE ==
[2020-01-09 10:23] LABS: BASOPHILS % (AUTO) 0.7 %; EOSINOPHILS # (AUTO) 0.1 10^3/uL (0.0-0.7); EOSINOPHILS % (AUTO) 1.7 %; HGB - HEMOGLOBIN 14.9 g/dL (12.0-16.0); LYMPHOCYTES # (AUTO) 1.2 10^3/uL (1.5-3.5); LYMPHOCYTES % (AUTO) 21.1 %; MEAN CORPUSCULAR HGB CONC 33.6 g/dL (32.0-36.0); MEAN CORPUSCULAR VOLUME 95.5 fL (81.0-99.0); MEAN PLATELET VOLUME 9.5 fL (7.9-10.8); MONOCYTES # (AUTO) 0.5 10^3/uL (0.0-1.0); MONOCYTES % (AUTO) 8.2 %; NEUTROPHILS % (AUTO) 67.8 %; PLT - PLATELET COUNT 270 10^3/uL (130-450); RED BLOOD COUNT 4.65 10^6/uL (4.20-5.40); WHITE BLOOD COUNT 5.9 x10^3/uL (4.8-10.8)
[2020-01-09 10:42] LABS: ALBUMIN 4.4 g/dL (3.2-5.5); ALBUMIN/GLOBULIN RATIO 1.6 (1.0-2.2); ALKALINE PHOSPHATASE 62 IU/L (42-121); ALT ALANINE AMINOTRANSFERASE 22 IU/L (10-60); AST ASPARTATE AMINOTRANSFERASE 22 IU/L (10-42); BUN - BLOOD UREA NITROGEN 13 mg/dL (6-20); CALCIUM 9.2 mg/dL (8.5-10.3); CARBON DIOXIDE - CO2 29 mmol/L (21-32); CHLORIDE 93 mmol/L (101-111); CHOL/HDL RATIO 2.4 (<4.4); CHOLESTEROL 229 mg/dL; CREATININE 0.7 mg/dL (0.4-1.0); GLUCOSE 100 mg/dL (70-100); HDL CHOLESTEROL 97 mg/dL; LDL CHOLESTEROL,CALCULATED 121 mg/dL; LDL/HDL RATIO 1.2 (<4.4); SODIUM 133 mmol/L (135-145); TOTAL PROTEIN 7.1 g/dL (6.7-8.2); VLDL CHOLESTEROL 11 mg/dL
== END 2020-01-09 09:57 | disposition home or self-care (01) ==
LOC: LAB 09:56
PROVIDERS: ATTEND Physician Assistant Medical
DX: E78.5 Hyperlipidemia, unspecified (principal); R19.7 Diarrhea, unspecified
CPT/HCPCS: 36415; 80053; 80061; 83721; 85025

== ENCOUNTER 2020-01-09 20:07 | Inpatient (IN) | payer MEDICARE ==
[2020-01-09] MEDS ORDERED: ONDANSETRON 4 MG/2 ML VIAL IVP STA (20:39)
[2020-01-09] MEDS ORDERED: SODIUM CHLORIDE 0.9% 1,000 ML IV STA ×2 (20:39→23:26)
--- NOTE | 2020-01-09 20:39 | ED Physician Documentation ---
<Hernesto Patiño - Last Filed: 01/10/20 04:43> PD HPI FOCAL NEURO - Stated complaint Stated Complaint: DIZZY,NAUSEA - Chief complaint Chief Complaint: Cardiac PD PAST MEDICAL HISTORY - Present Medications Home Medications: Ambulatory Orders Medication Instructions Recorded Confirmed Aspirin Chewable [[place] Raul 1 tab PO DAILY 08/23/19 08/23/19 Aspirin] Loperamide [Imodium] 2 mg PO ONCE #10 capsule 08/23/19 Ondansetron Odt [Zofran] 4 mg TL Q6H PRN #10 tablet 08/23/19 Triamterene/Hydrochlorothiazid 1 cap PO DAILY 08/23/19 08/23/19 [Triamterene-Hctz 37.5-25 mg Cp] Metoclopramide [Reglan] 10 mg PO Q6H PRN #20 tablet 01/09/20 Potassium Chloride 10 meq PO BID #10 tablet.er 01/09/20 - Allergies Allergies/Adverse Reactions: Allergies Allergy/AdvReac Type Severity Reaction Status Date / Time Penicillins AdvReac Nausea Verified 08/23/19 19:12 PD MEDICAL DECISION MAKING - ED course Complexity details: reviewed results, re-evaluated patient, considered differential, d/w patient, d/w family, other (22:45. patient actively seizing. Patient was given Ativan, she had a generalized tonic-clonic seizure was postictal for a significant period of time although unlikely it would be concerning for possible posterior circulation stroke, CTA of the head and neck are negative. will admit) - Consults Consults: Discussed case with (00:35 dr. acharya. will admit.) - Critical Care Time(min): 30 Time Includes: Direct patient care, Review records, Reassess patient, Document care, Coordinate care, Medical consult Data interpretation: Labs, CXR, Prior EKG Procedures included in critical care time: Peripheral IV Procedures excluded from critical care time: EKG Departure - Departure Disposition: 66 [facility] DC/Xfer Clinical Impression: Hyponatremia, Vertigo, Dizziness, Seizures Condition: Stable Discharge Date/Time: 01/10/20 01:15 <Stalin Sykes - Last Filed: 01/10/20 08:22> PD HPI FOCAL NEURO - History obtained from History obtained from: Patient (About once a year she gets a bout of vertigo with nausea. She has been nauseous and dizzy similar to prior episodes since about 2 this afternoon. It is worse if she moves or turns her head. She does have a headache with it and feels like her blood pressure is going up. 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 (Ovarian cyst surgery many years ago) - Past Surgical History Past Surgical History: Yes /SOLAR SALES REPRESENTATIVE: Oophrectomy - Social History Does the pt smoke?: No Smoking Status: Never smoker Does the pt drink ETOH?: Yes Does the pt have substance abuse?: No - Immunizations Immunizations are current?: Yes - POLST Patient has POLST: No PD ED PE NORMAL - Vitals Vital signs reviewed: Yes - General General: Alert and oriented X 3, Other (Appears uncomfortable and nauseous) - HEENT HEENT: PERRL, EOMI - Neck Neck: Supple, no meningeal sign, No bony TTP - Cardiac Cardiac: RRR, No murmur - Respiratory Respiratory: No respiratory distress, Clear bilaterally - Abdomen Abdomen: Non tender - Derm Derm: Normal color, Warm and dry - Extremities Extremities: No deformity, No tenderness to palpate - Neuro Neuro: Alert and oriented X 3, No motor deficit, No sensory deficit, Normal speech NIHSS - Time Time: 20:35 - Level of Consciousness Level of consciousness: (0) Alert, Keenly responsive LOC Questions: (0) Answers both Q's correct LOC Commands: (0) Performs both correctly - Gaze Best Gaze: (0) Normal - Visual Visual: (0) No loss - Facial Palsy Facial Palsy: (0) Normal, symmetrical movement - Motor Arms (both separate) Motor Arm (right): (0) No drift Motor Arm (left): (0) No drift - Motor Legs (both separate) Motor Leg (right): (0) No drift Motor Leg (left): (0) No drift - Limb Ataxia Limb Ataxia: (0) Absent - Sensory Sensory: (0) Normal - Best Language Best Language: (0) No aphasia - Dysarthria Dysarthria: (0) Normal - Extinction and Inattention (formally neg Extinction and inattention: (0) No abnormality - Total Score/Results Total Score/Result: 0 Results - Vitals Vitals: Vital Signs - 24 hr 01/09/20 01/09/20 01/09/20 20:10 20:25 22:50 Temperature 36.8 C Heart Rate 77 72 76 Respiratory 18 13 18 Rate Blood Pressure 179/160 H 170/93 H 151/56 H O2 Saturation 98 100 96 01/09/20 01/10/20 22:51 00:02 Temperature Heart Rate 75 64 Respiratory 20 15 Rate Blood Pressure 151/56 H 133/54 H O2 Saturation 95 94 Oxygen O2 Source Room air - EKG (time done) 2019 Rate: Rate (enter#) (72) Rhythm: NSR [place]: Normal Intervals: Normal VA QRS: Normal Ischemia: Normal ST segments Computer interpretation: Agree with computer - Labs Labs: Laboratory Tests 01/09/20 01/09/20 01/09/20 20:18 20:54 20:54 WBC 8.7 RBC 4.20 Hgb 13.5 Hct 38.2 MCV 91.0 MCH 32.1 H MCHC 35.3 RDW 12.2 Plt Count 235 MPV 9.5 Neut # (Auto) 6.7 H Lymph # (Auto) 1.3 L [place] # (Auto) 0.6 Eos # (Auto) 0.0 Baso # (Auto) 0.0 Absolute Nucleated RBC 0.00 Nucleated RBC % 0.0 PT INR APTT Sodium 122 L Potassium 3.1 L Chloride 84 L Carbon Dioxide 26 Anion Gap 12.0 BUN 10 Creatinine 0.5 Estimated GFR (MDRD) 122 Glucose 142 H POC Whole Bld Glucose 159 H Lactic Acid Calcium 8.8 Magnesium Total Bilirubin 1.1 H AST 23 ALT 21 Alkaline Phosphatase 57 Troponin I High Sens B-Natriuretic Peptide Total Protein 6.5 L Albumin 4.1 Globulin 2.4 Albumin/Globulin Ratio 1.7 Lipase 29 Ethyl Alcohol 01/09/20 01/09/20 01/09/20 23:03 23:03 23:03 WBC RBC Hgb Hct MCV MCH MCHC RDW Plt Count MPV Neut # (Auto) Lymph # (Auto) Nash # (Auto) Eos # (Auto) Baso # (Auto) Absolute Nucleated RBC Nucleated RBC % PT 12.4 INR 1.1 APTT 30.3 Sodium Potassium Chloride Carbon Dioxide Anion Gap BUN Creatinine Estimated GFR (MDRD) Glucose POC Whole Bld Glucose Lactic Acid Calcium Magnesium 1.7 Total Bilirubin AST ALT Alkaline Phosphatase Troponin I High Sens 5.5 B-Natriuretic Peptide Total Protein Albumin Globulin Albumin/Globulin Ratio Lipase Ethyl Alcohol < 5.0 01/09/20 01/09/20 23:03 23:03 WBC RBC Hgb Hct MCV MCH MCHC RDW Plt Count MPV Neut # (Auto) Lymph # (Auto) Nash # (Auto) Eos # (Auto) Baso # (Auto) Absolute Nucleated RBC Nucleated RBC % PT INR APTT Sodium Potassium Chloride Carbon Dioxide Anion Gap BUN Creatinine Estimated GFR (MDRD) Glucose POC Whole Bld Glucose Lactic Acid 5.7 H* Calcium Magnesium Total Bilirubin AST ALT Alkaline Phosphatase Troponin I High Sens B-Natriuretic Peptide 105 H Total Protein Albumin Globulin Albumin/Globulin Ratio Lipase Ethyl Alcohol PD MEDICAL DECISION MAKING - ED course ED course: Pt with recrruent vertigo. Has it about once per year. Neuro exam normal. Biggest c/o is nausea. Zofran IV not much help but was feeling better p reglan IV. Pt feeling not quite good enough to go at shift change and s/o to Dr Patiño at 10pm for reeval. Departure - Departure Record reviewed to determine appropriate education?: Yes
[2020-01-09 21:08] LABS: BASOPHILS % (AUTO) 0.3 %; EOSINOPHILS % (AUTO) 0.5 %; HGB - HEMOGLOBIN 13.5 g/dL (12.0-16.0); LYMPHOCYTES # (AUTO) 1.3 10^3/uL (1.5-3.5); LYMPHOCYTES % (AUTO) 14.7 %; MEAN CORPUSCULAR HEMOGLOBIN 32.1 pg (27.0-31.0); MEAN CORPUSCULAR HGB CONC 35.3 g/dL (32.0-36.0); MEAN PLATELET VOLUME 9.5 fL (7.9-10.8); MONOCYTES # (AUTO) 0.6 10^3/uL (0.0-1.0); MONOCYTES % (AUTO) 6.6 %; NEUTROPHILS # (AUTO) 6.7 10^3/uL (1.5-6.6); NEUTROPHILS % (AUTO) 77.3 %; PLT - PLATELET COUNT 235 10^3/uL (130-450); RED CELL DISTRIBUTION WIDTH 12.2 % (12.0-15.0); WHITE BLOOD COUNT 8.7 x10^3/uL (4.8-10.8)
[2020-01-09 21:22] LABS: ALBUMIN 4.1 g/dL (3.2-5.5); ALBUMIN/GLOBULIN RATIO 1.7 (1.0-2.2); BILIRUBIN,TOTAL 1.1 mg/dL (0.2-1.0); CALCIUM 8.8 mg/dL (8.5-10.3); CREATININE 0.5 mg/dL (0.4-1.0); TOTAL PROTEIN 6.5 g/dL (6.7-8.2)
[2020-01-09] MEDS ORDERED: METOCLOPRAMIDE 10 MG/2 ML VIAL IVP STA (21:26)
[2020-01-09] MEDS ORDERED: POTASSIUM CHLORIDE 20 MEQ TABLET PO STA (22:01)
[2020-01-09] MEDS ORDERED: LORazepam 2 MG/ML VIAL IVP STA ×2 (22:54→22:57)
[2020-01-09] MEDS ORDERED: IOVERSOL 320 100 ML VIAL IVP ONE (23:08)
[2020-01-09 23:14] LABS: INR 1.1 (0.8-1.2); PT - PROTHROMBIN TIME 12.4 secs (9.9-12.6)
[2020-01-09 23:18] LABS: MAGNESIUM 1.7 mg/dL (1.7-2.8)
[2020-01-09 23:28] LABS: PARTIAL THROMBOPLASTIN TIME 30.3 secs (24.9-33.3)
[2020-01-10] MEDS ORDERED: PROMETHAZINE INJ 12.5 MG in SODIUM CHLORIDE 0.9% 50 ML IV STA ×2
[2020-01-10] MEDS ORDERED: ONDANSETRON 4 MG/2 ML VIAL IVP PRN (00:35)
[2020-01-10] MEDS ORDERED: SODIUM CHLORIDE FLUSH 0.9% 10 ML SYRINGE IVP PRN (00:35)
[2020-01-10] MEDS ORDERED: PROCHLORPERAZINE 10 MG/2 ML VIAL IVP PRN (00:35)
[2020-01-10] MEDS ORDERED: levETIRAcetam INJ 1,000 MG in SODIUM CHLORIDE 0.9% 100ML 100 ML IV STA (00:36)
[2020-01-10 01:00] LABS: CREATININE 0.6 mg/dL (0.4-1.0)
[2020-01-10] MEDS ORDERED: LORazepam 2 MG/ML VIAL IVP PRN (01:01)
--- NOTE | 2020-01-10 01:07 | HISTORY & PHYSICAL EXAMINATION ---
Chief Complaint - Chief Complaint Chief Complaint: Nausea and dizziness History of Present Illness - Admitted From Admitted From:: Home - History Obtained From Records Reviewed: Yes History obtained from: Patien, Spouse, ER Physician, EMR Exam Limitations: Patient is post-ictal and unable to provide a full history. - History of Present Illness HPI Comment/Other: This is a 69-year-old female with a past medical history significant for hypertension and prior episodes of vertigo associated with nausea who presents today complaining of nausea and dizziness. tells me that her symptoms began this afternoon and are similar to her prior episodes of vertigo. Her symptoms are exacerbated by movement. Her states he measured her blood pressure at home and is elevated in the 180s. The patient reports having headache as well. tells me that she did have an alcoholic beverage today but only drank about half of it. She does not drink alcohol on a daily basis. She does not smoke and denies any drug use. She has no prior history of seizures. She does have a brother who has a history of seizures. The and the patient is quite healthy and is very active. She walks a few miles each day. History is limited from the patient as she is currently postictal. She denies any chest pain or dyspnea. She does complain of a headache. Her notes that she does have twitching of her right hand which is new after the seizure she had in the emergency department. also tells me she has a history of low sodium in the past although there is never been told exactly why. He states that the patient's primary care doctor called him today and want him to follow-up tomorrow to discuss blood work that was obtained today. He thinks it may be due to the low sodium. In the emergency department, she is on be afebrile temperature of 36.8 C. Her heart is in the 70s. Blood pressure was elevated with systolic in the 170s over 90s. She was not tachypneic and saturating well on room air. Lab significant for sodium of 122 and a potassium of 3.1. Her blood glucose was 142. Alcohol was less than 5. A CT of the head was unremarkable. Plan is for her to be discharged home but then she had a witnessed seizure in the emergency department that was generalized tonic-clonic. She was given lorazepam. She is now postictal. A CTA of the neck was obtained which was negative for dissection. Repeat labs showed her sodium had decreased to 119. Given these findings, medicine was consulted for admission. I did discuss goals of care with the patient's and he feels the patient would want to be a full code. History - Past Medical History Cardiovascular: reports: Hypertension Respiratory: reports: None Neuro: reports: Other (Vertigo) Endocrine/Autoimmune: reports: None GI: reports: None WHOLESALE REPRESENTATIVE: reports: Other (Ovarian cyst s/p resection) MRSA Hx?: No - Past Surgical History /WHOLESALE REPRESENTATIVE: reports: Oophrectomy - Family & Social History Family History Comment/Other: The patient has a brother with a history of seizures. Her otherwise reports no significant family history. Living arrangement: At home Living Situation: With spouse/s.o. Social History Notes: Patient lives at home with her , Jacob. She rarely drinks alcohol socially. She is a non-smoker and no history of drug use. She is normally quite active and walks a few miles a day. - Substance History Use: Uses substance without health or social issues: NONE - POLST Patient has POLST: No Meds/Allgy - Home Medications Home Medications: Ambulatory Orders Medication Instructions Recorded Confirmed Aspirin Chewable [[place] Raul 1 tab PO DAILY 08/23/19 08/23/19 Aspirin] Loperamide [Imodium] 2 mg PO ONCE #10 capsule 08/23/19 Ondansetron Odt [Zofran] 4 mg TL Q6H PRN #10 tablet 08/23/19 Triamterene/Hydrochlorothiazid 1 cap PO DAILY 08/23/19 08/23/19 [Triamterene-Hctz 37.5-25 mg Cp] Metoclopramide [Reglan] 10 mg PO Q6H PRN #20 tablet 01/09/20 Potassium Chloride 10 meq PO BID #10 tablet.er 01/09/20 - Allergies Allergies/Adverse Reactions: Allergies Allergy/AdvReac Type Severity Reaction Status Date / Time Penicillins AdvReac Nausea Verified 08/23/19 19:12 Review of Systems - Constitutional Constitutional: reports: Malaise, Weakness - Cardiovascular Cariovascular: denies: Chest pain, Exertional dyspnea, Decr. exercise tolerance - Respiratory Respiratory: denies: Cough, SOB at rest - Musculoskeletal Musculoskeletal: denies: Muscle weakness - Integumentary Integumentary: denies: Rash - Neurological Neurological: reports: Headache, Dizziness, Seizures. denies: General weakness, Focal weakness, Numbness - All Other Systems All Other Systems: reports: Other (Review of systems is limited as the patient is post ictal and unable to provide a thorough review of systems.) Prior Level of Functionality: She is independent with her ADLs. Exam - Vital Signs Reviewed Vital Signs: Yes Vital Signs: Vital Signs x48h Temp Pulse Resp BP Pulse Ox 01/10/20 00:02 64 15 133/54 H 94 01/09/20 22:51 75 20 151/56 H 95 01/09/20 22:50 76 18 151/56 H 96 01/09/20 20:25 72 13 170/93 H 100 01/09/20 20:10 36.8 C 77 18 179/160 H 98 - Physical Exam General Appearance: positive: Mild distress, Lethargic Eyes Bilateral: positive: Normal inspection, Other (Pupils constricted bilaterally.) ENT: positive: Dry mucous membranes Neck: positive: Nml inspection Respiratory: positive: No respiratory distress. negative: Wheezes, Rales, Rhonchi Cardiovascular: positive: Regular rate & rhythm, No murmur. negative: Tachycardia, Bradycardia, Systolic murmur Abdomen: positive: Non-tender, No distention. negative: Tenderness, Guarding, Rebound Skin: positive: Warm, Dry Extremities: positive: Full ROM, No pedal edema Neurologic/Psychiatric: positive: Other (No focal motor deficits on exam. Sensation is grossly intact. She does have slight twitching in her right hand. She is able to follow commands but slow to answer questions.). negative: Disoriented to person, Disoriented to place Conclusion/Plan - Problem List (1) New onset seizure Conclusion/Plan: Presented with vertigo and nausea similar to prior episodes but unfortunately had a witnessed generalized tonic-clonic seizure in the emergency department. This appears to be secondary to the hyponatremia as her sodium has decreased further to 119. Her blood pressure was elevated on admission with systolic in the 170s and so PRES is also on the differential. She has no history of alcohol use and imaging is unremarkable. She was given Lorazepam IV in the emergency department. She was also loaded with Keppra IV. At this time, we will continue her on Keppra 500 mg twice daily. Will use lorazepam IV as needed for further seizures. We will give her hypertonic saline at 50 mL an hour for 1 hour and recheck her sodium one hour after completion. Our goal will be to correct approximately 124 mmol over next few hours and up to 126 mmol over next 24 hours. We will also obtain MRI of the brain. Seizure precautions. We will check a TSH. (2) Hyponatremia Conclusion/Plan: She presented with a sodium of 122 which decreased to 119 on recheck. She is chronically hyponatremic with a baseline of approximately 130. Suspect this is secondary to her hydrochlorothiazide. She appears hypervolemic on exam. There is concern this may be the cause of her new onset seizure. We will treat her with hypertonic saline as mentioned above. We will recheck sodium 2 hours later. If she still needs correcting, we will start her on normal saline. Goal correction will be approximately 125 to 126 mmol over next 24 hours. We will check urine osmolality, serum osmolality, urine sodium. Will also check TSH and morning cortisol. (3) Post-ictal confusion Conclusion/Plan: She is currently confused which is new after the seizure. This is likely due to the postictal state although there may also be a component of confusion due to the lorazepam IV she received. We will monitor her at this time. (4) Vertigo Conclusion/Plan: Although she has a history of vertigo, suspect her current presentation is related to the hyponatremia. CT of the head was negative for any acute abnormalities. Will provide her with Zofran as needed for nausea. We will treat the underlying hyponatremia as mentioned above. (5) Hypokalemia Conclusion/Plan: Will replace intravenously. Continue to monitor. (6) Hypertension Conclusion/Plan: She presented with systolic in the 170s which has improved to the 150s. She has on triamterene and hydrochlorothiazide at home. Given the hyponatremia, the hydrochlorothiazide will need to be discontinued. We will start her on amlodipine 5 mg daily. Will consider adding a second antihypertensive such as lisinopril if need be. - Lab Results Lab results reviewed: Yes Fish Bones: 01/09/20 20:54 01/10/20 00:45 - Diagnostic Imaging Results Diagnostic Imaging Results: positive: Prelim report reviewed - EKG Results EKG Interpreted Independently: Yes EKG Findings: EKG shows sinus rhythm without evidence of ischemia. Core Measures - Anticipated LOS I expect patient to be DC'd or transferred within 96 hours.: Yes - Issues Hospital Issues and Management Plan: 69-year-old female who presents nausea and vertigo found to be hyponatremic. Had witnessed she is in the emergency department. Will admit to intensive care unit for hypertonic saline and close monitoring. Will obtain MRI of the brain. - DVT/VTE - Prophylaxis VTE/DVT Device ordered at admit?: Yes VTE/DVT Prophylaxis med ordered at admit?: Yes
[2020-01-10] MEDS: SODIUM CHLORIDE FLUSH 0.9% 10 ML SYRINGE IVP SCH ×3 (01:55→17:16)
[2020-01-10] MEDS ORDERED: SODIUM CHLORIDE 3% HYPERTONIC 500 ML IV SCH (02:00)
[2020-01-10] MEDS: POTASSIUM CHLOR 10 MEQ/100 ML 10 MEQ/100 ML BAG IV SCH ×4 (02:24→05:24)
[2020-01-10] MEDS ORDERED: IOVERSOL 320 100 ML VIAL IVP ONE (04:02)
[2020-01-10 04:38] LABS: BASOPHILS % (AUTO) 0.2 %; LYMPHOCYTES # (AUTO) 0.7 10^3/uL (1.5-3.5); LYMPHOCYTES % (AUTO) 5.8 %; MEAN CORPUSCULAR HEMOGLOBIN 32.6 pg (27.0-31.0); MEAN CORPUSCULAR HGB CONC 35.7 g/dL (32.0-36.0); MEAN CORPUSCULAR VOLUME 91.2 fL (81.0-99.0); MEAN PLATELET VOLUME 9.9 fL (7.9-10.8); MONOCYTES # (AUTO) 0.5 10^3/uL (0.0-1.0); MONOCYTES % (AUTO) 4.5 %; NEUTROPHILS # (AUTO) 10.4 10^3/uL (1.5-6.6); NEUTROPHILS % (AUTO) 89.1 %; PLT - PLATELET COUNT 218 10^3/uL (130-450); RED BLOOD COUNT 3.99 10^6/uL (4.20-5.40); RED CELL DISTRIBUTION WIDTH 12.1 % (12.0-15.0); WHITE BLOOD COUNT 11.7 x10^3/uL (4.8-10.8)
[2020-01-10 04:51] LABS: CALCIUM 8.1 mg/dL (8.5-10.3); CREATININE 0.5 mg/dL (0.4-1.0); MAGNESIUM 1.9 mg/dL (1.7-2.8); PHOSPHORUS 3.4 mg/dL (2.5-4.6)
[2020-01-10] MEDS: SODIUM CHLORIDE 0.9% 1,000 ML IV SCH ×3 (04:59→22:00)
[2020-01-10 05:23] LABS: MUDS CUTOFF CONCENTRATIONS CUTOFF CONC BELOW:
[2020-01-10 05:26] LABS: BILIRUBIN,URINE NEGATIVE (NEGATIVE); GLUCOSE, URINE (UA) 250 mg/dL (NEGATIVE); KETONES,URINE (UA) 15 mg/dL (NEGATIVE); LEUKOCYTE ESTERASE, URINE NEGATIVE (NEGATIVE); NITRITE,URINE NEGATIVE (NEGATIVE); OCCULT BLOOD,URINE NEGATIVE (NEGATIVE); PH,URINE 6.5 PH (5.0-7.5); PROTEIN,URINE NEGATIVE (NEGATIVE); UROBILINOGEN,URINE 0.2 (NORMAL) E.U./dL (NORMAL)
[2020-01-10 05:27] LABS: CLARITY,URINE CLEAR (CLEAR)
[2020-01-10 05:36] LABS: AMPHETAMINE SCREEN,URINE NEGATIVE (NEGATIVE); BENZODIAZEPINES SCREEN, URINE NEGATIVE (NEGATIVE); COCAINE SCREEN URINE NEGATIVE (NEGATIVE); METHADONE SCREEN, URINE NEGATIVE (NEGATIVE); METHAMPHETAMINES SCREEN, URINE NEGATIVE (NEGATIVE); OPIATE SCREEN, URINE NEGATIVE (NEGATIVE); OXYCODONE SCREEN, URINE NEGATIVE (NEGATIVE); PROPOXYPHENE SCREEN, URINE NEGATIVE (NEGATIVE); TRICYCLIC ANTIDEPRESSANT,URINE NEGATIVE (NEGATIVE)
--- NOTE | 2020-01-10 08:15 | CT Report ---
PROCEDURE: ANGIO HEAD W/WO INDICATIONS: L sided facial droop CONTRAST: IV CONTRAST: Optiray 320 ml: 100 PO CONTRAST: *NO PO CONTRAST TECHNIQUE: Precontrast 4.5 mm thick angled axial sections acquired from the foramen magnum to the vertex. Afte r the administration of intravenous contrast, 1 mm thick sections acquired through the [place] of [place] is. Postcontrast 4.5 mm thick sections then re-acquired from the foramen magnum to the vertex. 3-di mensional bodcvtd-tqlxxmkqj-drxprtkdkm (MIP) and/or volume rendering reformats were acquired of the c entral intracranial vasculature. For radiation dose reduction, the following was used: automated ex posure control, adjustment of mA and/or kV according to patient size. COMPARISON: None FINDINGS: Image quality: Excellent. Anterior circulation: Intracranial internal carotid arteries are normal in size and flow. Atheroscl erotic calcifications noted in the cavernous and clinoid segments of the internal carotid arteries do not cause measurable stenosis. The flow within the paired anterior cerebral arteries is normal and s ymmetric. The flow within the middle cerebral arteries is normal and symmetric. The anterior commun icating artery is seen. No aneurysms are seen. Posterior circulation: Visualized portions of the vertebral arteries demonstrate normal caliber, and join to form a normal appearing basilar artery. Flow within the posterior cerebral arteries is norm al and symmetric. 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 No aneurysms are seen. Dural sinuses demonstrate normal postcontrast enhancement. CSF spaces: Ventricles are normal in size and shape. Basal cisterns are patent. No extra-axial flu id collections. Brain: No midline shift. No intracranial bleeds or masses. [place]-white matter interface appears int act. Skull and face: Calvarium and facial bones appear intact, without suspicious lesions. Sinuses: Visualized sinuses and mastoids are clear. IMPRESSION: 1. No acute intracranial disease process. 2. No large vessel occlusion, hemodynamically significant vascular stenosis, vascular dissection or a neurysm. Reviewed by: Tisha Carnes MD, PhD on 01/10/2020 8:14 AM PDT Approved by: Tisha Carnes MD, PhD on 01/10/2020 8:14 AM PDT Station ID: [id number]
--- NOTE | 2020-01-10 08:19 | CT Report ---
PROCEDURE: ANGIO NECK W INDICATIONS: L sided facial droop, L neck pain CONTRAST: IV CONTRAST: Optiray 320 ml: 100 PO CONTRAST: *NO PO CONTRAST TECHNIQUE: After the administration of intravenous contrast, 1.5 mm axial sections acquired from the aortic arch to the [place] of [place]. Coronal 3-D maximum intensity projection (MIP) and/or volume rendering ref ormats were then performed. For radiation dose reduction, the following was used: automated exposur e control, adjustment of mA and/or kV according to patient size. COMPARISON: None. FINDINGS: Image quality: Excellent. Carotid system: The great vessels demonstrate a conventional anatomy as they arise from the aortic a rch. The origins of the common carotid arteries appear patent. The common carotid arteries demonstr ate normal calibers and courses. Atherosclerotic calcifications noted in the origins of the internal carotid arteries bilaterally which causes less than 50% stenosis of the vessels. Posterior circulation: The origins of the vertebral arteries appear patent. The more superior porti ons of the vertebral arteries demonstrate normal course and caliber. They join to form a normal appe aring basilar artery. Soft tissues: Visualized neck soft tissues demonstrate no suspicious abnormalities. The thyroid gla nd is normal in size. Mucosal thickening noted in the right maxillary sinus. Mastoid air cells are cl ear. Bones: No suspicious bony lesions. Spine degenerative disc disease and facet arthropathy are noted. Visualized cervical spine appears normally aligned. IMPRESSION: 1. Less than 50% stenosis of the origins of the internal carotid arteries bilaterally. 2. Vertebral arteries are fully patent. 3. No vascular dissection or aneurysm. The estimate of stenosis included in the report of the imaging study was calculated using the NASCET method Reviewed by: Tisha Carnes MD, PhD on 01/10/2020 8:17 AM PDT Approved by: Tisha Carnes MD, PhD on 01/10/2020 8:17 AM PDT Station ID: [id number]
[2020-01-10 08:29] LABS: VBG PH 7.43 (7.31-7.41)
--- NOTE | 2020-01-10 08:37 | XRAY Report ---
PROCEDURE: Chest 1 View X-Ray INDICATIONS: Altered mental status. TECHNIQUE: One view of the chest was acquired. COMPARISON: Lung apices on CT angiogram of the neck also performed today. FINDINGS: Surgical changes and devices: None. Lungs and pleura: No pleural effusions or pneumothorax. Lungs are clear. Mediastinum: Mediastinal contours appear normal. Heart size is normal. Bones and chest wall: No suspicious bony lesions. Overlying soft tissues appear unremarkable. IMPRESSION: No acute cardiopulmonary abnormality. Reviewed by: Zeke Gibson MD on 01/10/2020 8:35 AM PDT Approved by: Zeke Gibson MD on 01/10/2020 8:35 AM PDT Station ID: [id number]
[2020-01-10] MEDS: levETIRAcetam 250 MG TABLET PO SCH ×2 (09:28→22:04)
[2020-01-10 09:31] LABS: CREATININE 0.5 mg/dL (0.4-1.0)
[2020-01-10] MEDS: amLODIPine 5 MG TABLET PO SCH (09:33)
[2020-01-10] MEDS: ENOXAPARIN 40 MG/0.4 ML SYRINGE SUBQ SCH (09:33)
[2020-01-10] MEDS ORDERED: CALCIUM GLUCONATE 1,000 MG in SODIUM CHLORIDE 0.9% 50 ML IV ONE (11:30)
--- NOTE | 2020-01-10 11:50 | PHARMACY PROGRESS NOTE ---
- Best Possible Medication History Admit Date and Time: 01/10/20 0035 Processed by: Pharmacy Medication History completed: Yes Patient Interview: Completed Secondary Source(s): Pharmacy records, Insurance records As the person ultimately responsible for medication therapy, providers are able to order a medication from an existing home medication list in [facility] via the "Reconcile Routine" prior to Confirmation of that medication by credit support counselor. Such practice is discouraged except when the physician, in their clinical judgment, deems that a medical need exists for a medication without regard to previous use.
[2020-01-10] MEDS ORDERED: GADOBUTROL 7.5 MMOL/7.5 ML VIAL ONE (12:20)
[2020-01-10] MEDS ORDERED: LORazepam 2 MG/ML VIAL IVP SCH (16:12)
--- NOTE | 2020-01-10 16:16 | PROVIDER PROGRESS NOTE ---
Assessment/Plan - Problem List (1) New onset seizure Assessment/Plan: Presented with vertigo and nausea similar to prior episodes but unfortunately she then had a witnessed generalized tonic-clonic seizure in the emergency department. This appears to be secondary to the hyponatremia as her sodium has decreased further to 119. Her blood pressure was elevated on admission with systolic in the 170s and so PRES is also on the differential. She has no history of alcohol use and imaging was unremarkable. She was given Lorazepam IV in the emergency department. She was also loaded with Keppra IV. She was admitted to the ICU for neuro checks and seizure precautions and careful replacement of serum sodium. Continue her on Keppra 500 mg twice daily. Use lorazepam IV as needed for further seizures. IV hypertonic saline given then normal saline to correct sodium MRI of the brain ordered, she was too movement to tolerate it. She will need pre-medication Seizure precautions. I informed the , at bedside, that she will need Neurology follow-up, to determine if Keppra is needed lifelong. They should not plan to travel by plane to the [place] in a week, to visit their new grad-daughter. She will probably need an EEG. She will not be able to drive a vehicle until cleared to do so by Neurology. These restrictions will need to be spelled out at discharge. (2) Hyponatremia Assessment/Plan: She presented with a sodium of 122 which decreased to 119 on recheck. She is chronically hyponatremic with a baseline of approximately 130. This may be the cause of her new onset seizure. Suspect this is secondary to her hydrochlorothiazide. Her TSH and am cortisol were normal. She got hypertonic saline as mentioned above. Now on normal saline. Follow urine osmolality, serum osmolality, urine sodium. I informed the that the Triam/HCTZ shold not be used again. (3) Post-ictal confusion Assessment/Plan: She was confused after the seizure and Benzo treatment, which is new Continue with Keppra. Seizure precautions (4) Vertigo Assessment/Plan: Although she has a history of vertigo, suspect her current presentation is related to the hyponatremia. CT of the head was negative for any acute abnormalities. Zofran ordered as needed for nausea. Restart her daily scheduled benzo (5) Hypokalemia Assessment/Plan: Resolved with replacement., Follow BMP daily (6) Hypertension Assessment/Plan: She presented with systolic in the 170s which has improved to the 150s. She has on triamterene and hydrochlorothiazide at home. With this amount of hyponatremia, the hydrochlorothiazide will need to be discontinued. Amlodipine started for BP control. Will consider adding a second antihypertensive such as lisinopril if need be. Will restart her daily baby aspirin since brain imaging showed no hemorrhage. - Current Meds Current Meds: Current Medications Generic Name Dose Route Start Last Admin Trade Name Freq PRN Reason Stop Dose Admin Amlodipine Besylate 5 mg 01/10/20 09:00 01/10/20 09:33 Norvasc PO 5 mg DAILY CASTRO Administration Enoxaparin Sodium 40 mg 01/10/20 09:00 01/10/20 09:33 Lovenox SUBQ 40 mg DAILY CASTRO Administration Sodium Chloride 1,000 mls @ 100 mls/hr 01/10/20 01:00 01/10/20 16:00 Normal Saline 0.9% IV 100 mls/hr .Q10H CASTRO Infusion Levetiracetam 500 mg 01/10/20 09:00 01/10/20 09:28 Keppra PO 500 mg BID CASTRO Administration Prochlorperazine Edisylate 10 mg 01/10/20 00:35 01/10/20 02:32 Compazine Inj IVP 10 mg Q6HR PRN Administration Nausea / Vomiting Sodium Chloride 10 ml 01/10/20 01:00 01/10/20 09:33 Normal Saline Flush 0.9% IVP 10 ml 0100,0900,1700 CASTRO Administration - Lab Result Fish Bone Diagrams: 01/10/20 04:25 01/10/20 09:05 - Additional Planning My Orders: My Active Orders 01/10/20 16:12 LORazepam INJ [Ativan Inj (Vial)] 1 mg IVP ONCE STA Subjective - Subjective Patient Reports: Other (Sleeping, awoke and communicates normally) Nursing Reports: Other (She could not tolerating lying flat for an MRI of the brain earlier today, due to LBP and MRI will be re-scheduled for tonight) Objective Vital Signs: Vital Signs - 24 hr 01/09/20 01/09/20 01/09/20 20:10 20:25 22:50 Temperature 36.8 C Heart Rate 77 72 76 Heart Rate [ Brachial] Respiratory 18 13 18 Rate Blood Pressure 179/160 H 170/93 H 151/56 H Blood Pressure [Left Brachial artery] Blood Pressure [Right Brachial artery] O2 Saturation 98 100 96 01/09/20 01/10/20 01/10/20 22:51 00:02 01:45 Temperature 36.9 C Heart Rate 75 64 Heart Rate [ 63 Brachial] Respiratory 20 15 18 Rate Blood Pressure 151/56 H 133/54 H Blood Pressure 112/50 L [Left Brachial artery] Blood Pressure [Right Brachial artery] O2 Saturation 95 94 96 01/10/20 01/10/20 01/10/20 02:00 02:30 03:00 Temperature Heart Rate Heart Rate [ 67 70 Brachial] Respiratory 17 14 Rate Blood Pressure Blood Pressure 93/56 L [Left Brachial artery] Blood Pressure 102/92 H 110/57 L [Right Brachial artery] O2 Saturation 100 96 01/10/20 01/10/20 01/10/20 04:00 05:00 06:00 Temperature 37.0 C Heart Rate Heart Rate [ 64 62 60 Brachial] Respiratory 12 11 L 11 L Rate Blood Pressure Blood Pressure [Left Brachial artery] Blood Pressure 109/67 99/51 L 111/49 L [Right Brachial artery] O2 Saturation 96 96 97 01/10/20 01/10/20 01/10/20 07:00 08:00 08:53 Temperature 37 C Heart Rate 60 Heart Rate [ 59 L 58 L Brachial] Respiratory 11 L 10 L 12 Rate Blood Pressure Blood Pressure [Left Brachial artery] Blood Pressure 102/45 L 97/43 L [Right Brachial artery] O2 Saturation 96 97 96 01/10/20 01/10/20 01/10/20 09:00 10:00 11:00 Temperature Heart Rate Heart Rate [ 77 64 59 L Brachial] Respiratory 17 26 H 12 Rate Blood Pressure Blood Pressure [Left Brachial artery] Blood Pressure 105/53 L 103/46 L 105/37 L [Right Brachial artery] O2 Saturation 98 96 96 01/10/20 01/10/20 01/10/20 11:57 14:00 15:00 Temperature 37.1 C Heart Rate Heart Rate [ 67 85 79 Brachial] Respiratory 17 14 20 Rate Blood Pressure Blood Pressure [Left Brachial artery] Blood Pressure 109/95 H 132/77 H [Right Brachial artery] O2 Saturation 98 98 97 Oxygen O2 Source Room air I&O (Last 24 Hrs): Intake and Output Totals x24h 01/08/20 01/09/20 01/10/20 23:59 23:59 23:59 Intake Total 732.6 3008.233 Output Total 2600 Balance 732.6 408.233 General: Alert, Other HEENT: Atraumatic, Mucous membr. moist/pink Neck: Supple, No JVD Neuro: Alert, Non Focal Cardiovascular: Regular rate Respiratory: No respiratory distress Abdomen: Soft Extremities: No edema - Results Results: Laboratory Results WBC 11.7 x10^3/uL (4.8-10.8) H 01/10/20 04:25 RBC 3.99 10^6/uL (4.20-5.40) L 01/10/20 04:25 Hgb 13.0 g/dL (12.0-16.0) 01/10/20 04:25 Hct 36.4 % (37.0-47.0) L 01/10/20 04:25 MCV 91.2 fL (81.0-99.0) 01/10/20 04:25 MCH 32.6 pg (27.0-31.0) H 01/10/20 04:25 MCHC 35.7 g/dL (32.0-36.0) 01/10/20 04:25 RDW 12.1 % (12.0-15.0) 01/10/20 04:25 Plt Count 218 10^3/uL (130-450) 01/10/20 04:25 MPV 9.9 fL (7.9-10.8) 01/10/20 04:25 Neut # (Auto) 10.4 10^3/uL (1.5-6.6) H 01/10/20 04:25 Lymph # (Auto) 0.7 10^3/uL (1.5-3.5) L 01/10/20 04:25 [place] # (Auto) 0.5 10^3/uL (0.0-1.0) 01/10/20 04:25 Eos # (Auto) 0.0 10^3/uL (0.0-0.7) 01/10/20 04:25 Baso # (Auto) 0.0 10^3/uL (0.0-0.1) 01/10/20 04:25 Absolute Nucleated RBC 0.00 x10^3/uL 01/10/20 04:25 Nucleated RBC % 0.0 /100WBC 01/10/20 04:25 PT 12.4 secs (9.9-12.6) 01/09/20 23:03 INR 1.1 (0.8-1.2) 01/09/20 23:03 APTT 30.3 secs (24.9-33.3) 01/09/20 23:03 VBG pH 7.430 (7.31-7.41) H 01/10/20 07:34 Ionized Calcium 1.01 mmol/L (1.15-1.33) L 01/10/20 07:34 Sodium 125 mmol/L (135-145) L 01/10/20 09:05 Potassium 3.5 mmol/L (3.5-5.0) 01/10/20 09:05 Chloride 93 mmol/L (101-111) L 01/10/20 09:05 Carbon Dioxide 24 mmol/L (21-32) 01/10/20 09:05 Anion Gap 8.0 (6-13) 01/10/20 09:05 BUN 7 mg/dL (6-20) 01/10/20 09:05 Creatinine 0.5 mg/dL (0.4-1.0) 01/10/20 09:05 Estimated GFR (MDRD) 122 (>89) 01/10/20 09:05 Glucose 112 mg/dL (70-100) H 01/10/20 09:05 POC Whole Bld Glucose 104 mg/dL (70 - 100) H 01/10/20 11:18 Lactic Acid 0.8 mmol/L (0.5-2.2) 01/10/20 04:25 Uric Acid 4.2 mg/dL (2.6-7.2) 01/10/20 00:45 Calcium 8.0 mg/dL (8.5-10.3) L 01/10/20 09:05 Phosphorus 3.4 mg/dL (2.5-4.6) 01/10/20 04:25 Magnesium 1.9 mg/dL (1.7-2.8) 01/10/20 04:25 Total Bilirubin 1.1 mg/dL (0.2-1.0) H 01/09/20 20:54 AST 23 IU/L (10-42) 01/09/20 20:54 ALT 21 IU/L (10-60) 01/09/20 20:54 Alkaline Phosphatase 57 IU/L (42-121) 01/09/20 20:54 Troponin I High Sens 5.5 ng/L (2.3-14.8) 01/09/20 23:03 B-Natriuretic Peptide 105 pg/mL (5-100) H 01/09/20 23:03 Total Protein 6.5 g/dL (6.7-8.2) L 01/09/20 20:54 Albumin 3.8 g/dL (3.2-5.5) 01/10/20 04:25 Globulin 2.4 g/dL (2.1-4.2) 01/09/20 20:54 Albumin/Globulin Ratio 1.7 (1.0-2.2) 01/09/20 20:54 Lipase 29 U/L (22-51) 01/09/20 20:54 TSH 1.07 uIU/mL (0.34-5.60) 01/10/20 04:25 Cortisol AM Sample 21.5 ug/dL 01/10/20 04:25 Urine Color YELLOW 01/10/20 04:53 Urine Clarity CLEAR (CLEAR) 01/10/20 04:53 Urine pH 6.5 PH (5.0-7.5) 01/10/20 04:53 Ur Specific [place] 1.010 (1.002-1.030) 01/10/20 04:53 Urine Protein NEGATIVE mg/dL (NEGATIVE) 01/10/20 04:53 Urine Glucose (UA) 250 mg/dL (NEGATIVE) H 01/10/20 04:53 Urine Ketones 15 mg/dL (NEGATIVE) H 01/10/20 04:53 Urine Occult Blood NEGATIVE (NEGATIVE) 01/10/20 04:53 Urine Nitrite NEGATIVE (NEGATIVE) 01/10/20 04:53 Urine Bilirubin NEGATIVE (NEGATIVE) 01/10/20 04:53 Urine Urobilinogen 0.2 (NORMAL) E.U./dL (NORMAL) 01/10/20 04:53 Ur Leukocyte Esterase NEGATIVE (NEGATIVE) 01/10/20 04:53 Ur Microscopic Review NOT INDICATED 01/10/20 04:53 Urine Culture Comments NOT INDICATED 01/10/20 04:53 Urine Sodium 38.0 mmol/L 01/10/20 04:53 Nasal Screen MRSA (PCR) NEGATIVE (NEGATIVE) 01/10/20 01:40 Urine Opiates Screen NEGATIVE (NEGATIVE) 01/10/20 04:53 Ur Oxycodone Screen NEGATIVE (NEGATIVE) 01/10/20 04:53 Urine Methadone Screen NEGATIVE (NEGATIVE) 01/10/20 04:53 Ur Propoxyphene Screen NEGATIVE (NEGATIVE) 01/10/20 04:53 Ur Barbiturates Screen NEGATIVE (NEGATIVE) 01/10/20 04:53 Ur Tricyclics Screen NEGATIVE (NEGATIVE) 01/10/20 04:53 Ur Phencyclidine Scrn NEGATIVE (NEGATIVE) 01/10/20 04:53 Ur Amphetamine Screen NEGATIVE (NEGATIVE) 01/10/20 04:53 U Methamphetamines Scrn NEGATIVE (NEGATIVE) 01/10/20 04:53 U Benzodiazepines Scrn NEGATIVE (NEGATIVE) 01/10/20 04:53 Urine Cocaine Screen NEGATIVE (NEGATIVE) 01/10/20 04:53 U Cannabinoids Screen NEGATIVE (NEGATIVE) 01/10/20 04:53 Ethyl Alcohol < 5.0 mg/dL 01/09/20 23:03 - Procedures Procedures: Procedures COLONOSCOPY (09/19/14)
[2020-01-10] MEDS ORDERED: HYDROmorphone 2 MG/ML VIAL IVP SCH (16:38)
[2020-01-10] MEDS: ACETAMINOPHEN 325 MG TABLET PO PRN (17:14)
[2020-01-11] MEDS: SODIUM CHLORIDE FLUSH 0.9% 10 ML SYRINGE IVP SCH ×3 (01:01→19:38)
[2020-01-11] MEDS: SODIUM CHLORIDE 0.9% 1,000 ML IV SCH ×2 (02:05→02:30)
[2020-01-11 04:48] LABS: BASOPHILS % (AUTO) 0.1 %; EOSINOPHILS % (AUTO) 0.3 %; HGB - HEMOGLOBIN 11.7 g/dL (12.0-16.0); LYMPHOCYTES # (AUTO) 1.3 10^3/uL (1.5-3.5); LYMPHOCYTES % (AUTO) 18.9 %; MEAN CORPUSCULAR HEMOGLOBIN 31.2 pg (27.0-31.0); MEAN CORPUSCULAR HGB CONC 32.2 g/dL (32.0-36.0); MEAN CORPUSCULAR VOLUME 96.8 fL (81.0-99.0); MEAN PLATELET VOLUME 10.3 fL (7.9-10.8); MONOCYTES # (AUTO) 0.7 10^3/uL (0.0-1.0); MONOCYTES % (AUTO) 9.3 %; NEUTROPHILS # (AUTO) 4.9 10^3/uL (1.5-6.6); NEUTROPHILS % (AUTO) 70.8 %; PLT - PLATELET COUNT 184 10^3/uL (130-450); RED BLOOD COUNT 3.75 10^6/uL (4.20-5.40); RED CELL DISTRIBUTION WIDTH 12.8 % (12.0-15.0)
[2020-01-11 05:03] LABS: CALCIUM 8.3 mg/dL (8.5-10.3); CREATININE 0.6 mg/dL (0.4-1.0); MAGNESIUM 2.1 mg/dL (1.7-2.8); PHOSPHORUS 3.5 mg/dL (2.5-4.6)
--- NOTE | 2020-01-11 08:20 | MRI Report ---
PROCEDURE: Brain W/WO INDICATIONS: New seizure. CONTRAST: IV CONTRAST: Gadavist ml: 7.5 TECHNIQUE: Noncontrast axial T1 spin echo, axial T2 fast spin echo, sagittal and axial FLAIR, coronal T2 fast sp in echo, axial gradient echo, axial diffusion and ADC through the brain. After the administration of contrast, axial and coronal T1 spin echo with fat saturation through the brain. COMPARISON: CT angiography of the head dated 01.09.20. FINDINGS: Image quality: Partially degraded by motion artifact. CSF spaces: Basal cisterns are patent. No extra-axial fluid collections. Ventricles are normal in size and shape. Brain: No midline shift. No intracranial bleeds or masses. No abnormal intracranial enhancement. There is mild cerebral volume loss for age. There is minimal periventricular white matter chronic sm all vessel ischemic change. The brainstem appears normal. Diffusion-weighted images demonstrate no acute ischemic insults. No chronic ischemic insults. Normal intravascular flow voids are present. Skull and face: Calvarial marrow is normal in signal. Orbits appear normal. Sinuses: There is mild right maxillary sinus mucosal thickening. Mild mucosal thickening in the bilat eral ethmoid air cells. Mastoids are clear. IMPRESSION: 1. Limited examination secondary to motion artifact. 2. No acute process. No recent infarct. 3. Mild volume loss. Minimal small vessel ischemic disease. Reviewed by: Adam Pinto MD on 01/11/2020 8:18 AM PDT Approved by: Adam Pinto MD on 01/11/2020 8:18 AM PDT Station ID: [id number]
[2020-01-11 08:22] LABS: CALCIUM 8.6 mg/dL (8.5-10.3); CREATININE 0.7 mg/dL (0.4-1.0)
[2020-01-11] MEDS: amLODIPine 5 MG TABLET PO SCH (08:24)
[2020-01-11] MEDS: ALPRAZolam 0.25 MG TABLET PO SCH (08:25)
[2020-01-11] MEDS: ENOXAPARIN 40 MG/0.4 ML SYRINGE SUBQ SCH (08:25)
[2020-01-11] MEDS: levETIRAcetam 250 MG TABLET PO SCH ×2 (08:27→20:28)
--- NOTE | 2020-01-11 08:28 | XRAY Report ---
PROCEDURE: Chest 1 View X-Ray INDICATIONS: Fever. Hypoxia. TECHNIQUE: One view of the chest was acquired. COMPARISON: Chest x-ray 01/09/2020 FINDINGS: Surgical changes and devices: None. Lungs and pleura: In interval since the prior exam, there is been development of right lower lobe opa city. Mediastinum: Mediastinal contours appear normal. Heart size is mildly prominent. Bones and chest wall: No suspicious bony lesions. Overlying soft tissues appear unremarkable. IMPRESSION: Interval development of right lower lobe opacity likely pneumonia. Recommend interval follow-up to do cument resolution and exclude presence of underlying mass lesion. Reviewed by: Joslyn Arenas MD on 01/11/2020 8:27 AM PDT Approved by: Joslyn Arenas MD on 01/11/2020 8:27 AM PDT Station ID: [id number]
[2020-01-11] MEDS ORDERED: cefTRIAXone 2 GM in SODIUM CHLORIDE 0.9% MINIBAG 100 ML IV SCH (09:00)
[2020-01-11] MEDS ORDERED: ASPIRIN CHEW 81 MG TABLET PO SCH (09:00)
[2020-01-11] MEDS ORDERED: POTASSIUM CHLORIDE 20 MEQ TABLET PO ONE (09:00)
--- NOTE | 2020-01-11 09:44 | PROVIDER PROGRESS NOTE ---
Subjective - Prog Note Date Prog Note Date: 01/11/20 - Subjective Subjective: She reports feeling a little better. She is complaining of lower back pain which is not new for her. She still has a slight headache. Also has some nausea but no vomiting. She feels like her balance is not the greatest when she was ambulating yesterday. No more seizures since hospitalization. Denies any neck pain. Current Medications - Current Medications Current Medications: Active Medications Acetaminophen (Tylenol) 650 mg PO Q4HR PRN PRN Reason: Pain 1 to 4 Last Admin: 01/10/20 17:14 Dose: 650 mg Documented by: Alprazolam (Xanax) 0.25 mg PO DAILY [facility] Last Admin: 01/11/20 08:25 Dose: Not Given Documented by: Amlodipine Besylate (Norvasc) 5 mg PO DAILY [facility] Last Admin: 01/11/20 08:24 Dose: Not Given Documented by: Enoxaparin Sodium (Lovenox) 40 mg SUBQ DAILY [facility] Last Admin: 01/11/20 08:25 Dose: Not Given Documented by: Sodium Chloride (Normal Saline 0.9%) 1,000 mls @ 100 mls/hr IV .Q10H [facility] Last Admin: 01/11/20 02:30 Dose: 100 mls/hr Documented by: Azithromycin 500 mg/ Sodium (Chloride) 250 mls @ 250 mls/hr IV Q24H [facility] Stop: 01/13/20 10:59 Last Admin: 01/11/20 10:17 Dose: 250 mls/hr Documented by: Ceftriaxone Sodium 2 gm/ (Sodium Chloride) 100 mls @ 200 mls/hr IV DAILY [facility] Stop: 01/15/20 09:29 Last Infusion: 01/11/20 10:10 Dose: Infused Documented by: Levetiracetam (Keppra) 500 mg PO BID [facility] Last Admin: 01/11/20 08:27 Dose: 500 mg Documented by: Lorazepam (Ativan Inj (Vial)) 2 mg IVP Q2H PRN PRN Reason: Seizure Ondansetron HCl (Zofran Inj) 4 mg IVP Q6HR PRN PRN Reason: Nausea / Vomiting Last Admin: 01/11/20 11:28 Dose: 4 mg Documented by: Prochlorperazine Edisylate (Compazine Inj) 10 mg IVP Q6HR PRN PRN Reason: Nausea / Vomiting Last Admin: 01/10/20 02:32 Dose: 10 mg Documented by: Sodium Chloride (Normal Saline Flush 0.9%) 10 ml IVP 0100,0900,1700 [facility] Last Admin: 01/11/20 11:28 Dose: 10 ml Documented by: Sodium Chloride (Normal Saline Flush 0.9%) 10 ml IVP PRN PRN PRN Reason: NEEDED PER PROVIDER ORDERS Aspirin Chewable [St Raul Aspirin] 81 mg PO DAILY 08/23/19 Triamterene/Hydrochlorothiazid [Triamterene-Hctz 37.5-25 mg Cp] 1 cap PO DAILY 08/23/19 ALPRAZolam [Alprazolam] 0.25 mg PO DAILY 01/10/20 Objective - Vital Signs/Intake & Output Reviewed Vital Signs: Yes Vital Signs: Vital Signs Temp Pulse Resp BP Pulse Ox 01/11/20 07:00 39.3 C H 68 23 117/46 L 95 01/11/20 06:00 39 C H 65 18 114/40 L 92 Intake & Output: Intake & Output 01/08/20 01/09/20 01/10/20 01/11/20 23:59 23:59 23:59 23:59 Intake Total 732.6 3638.233 380 Output Total 3450 400 Balance 732.6 188.233 -20 - Objective General Appearance: positive: No acute distress, Alert Eyes Bilateral: positive: Normal inspection, Conjunctivae nml ENT: positive: ENT inspection nml Neck: positive: Nml inspection Respiratory: positive: No respiratory distress. negative: Wheezes, Rales, Rhonchi Cardiovascular: positive: No murmur. negative: Regular rate & rhythm, Tachycardia, Systolic murmur Abdomen: positive: Non-tender, No distention. negative: Tenderness, Guarding, Rebound Skin: positive: No rash, Warm, Dry Extremities: positive: Full ROM, No pedal edema Neurologic/Psychiatric: positive: Oriented x3, Motor nml. negative: Disoriented to person, Disoriented to place, Disoriented to time - Lab Results Fish Bones: 01/11/20 04:15 01/11/20 08:03 Other Labs: Lab Results x24hrs 01/11/20 01/11/20 01/11/20 Range/Units 08:03 08:03 04:15 WBC (4.8-10.8) x10^3/uL RBC (4.20-5.40) 10^6/uL Hgb (12.0-16.0) g/dL Hct (37.0-47.0) % MCV (81.0-99.0) fL MCH (27.0-31.0) pg MCHC (32.0-36.0) g/dL RDW (12.0-15.0) % Plt Count (130-450) 10^3/uL MPV (7.9-10.8) fL Neut # (Auto) (1.5-6.6) 10^3/uL Lymph # (Auto) (1.5-3.5) 10^3/uL Toole # (Auto) (0.0-1.0) 10^3/uL Eos # (Auto) (0.0-0.7) 10^3/uL Baso # (Auto) (0.0-0.1) 10^3/uL Absolute Nucleated RBC x10^3/uL Nucleated RBC % /100WBC Sodium 132 L 134 L (135-145) mmol/L Potassium 3.2 L 3.2 L (3.5-5.0) mmol/L Chloride 101 103 (101-111) mmol/L Carbon Dioxide 20 L 25 (21-32) mmol/L Anion Gap 11.0 6.0 (6-13) BUN 9 9 (6-20) mg/dL Creatinine 0.7 0.6 (0.4-1.0) mg/dL Estimated GFR (MDRD) 82 L 99 (>89) Glucose 92 99 (70-100) mg/dL POC Whole Bld Glucose (70 - 100) mg/dL Calcium 8.6 8.3 L (8.5-10.3) mg/dL Phosphorus 3.5 (2.5-4.6) mg/dL Magnesium 2.1 (1.7-2.8) mg/dL Albumin 3.5 (3.2-5.5) g/dL 01/11/20 01/10/20 01/10/20 Range/Units 04:15 16:21 11:18 WBC 7.0 (4.8-10.8) x10^3/uL RBC 3.75 L (4.20-5.40) 10^6/uL Hgb 11.7 L (12.0-16.0) g/dL Hct 36.3 L (37.0-47.0) % MCV 96.8 (81.0-99.0) fL MCH 31.2 H (27.0-31.0) pg MCHC 32.2 (32.0-36.0) g/dL RDW 12.8 (12.0-15.0) % Plt Count 184 (130-450) 10^3/uL MPV 10.3 (7.9-10.8) fL Neut # (Auto) 4.9 (1.5-6.6) 10^3/uL Lymph # (Auto) 1.3 L (1.5-3.5) 10^3/uL Toole # (Auto) 0.7 (0.0-1.0) 10^3/uL Eos # (Auto) 0.0 (0.0-0.7) 10^3/uL Baso # (Auto) 0.0 (0.0-0.1) 10^3/uL Absolute Nucleated RBC 0.00 x10^3/uL Nucleated RBC % 0.0 /100WBC Sodium (135-145) mmol/L Potassium (3.5-5.0) mmol/L Chloride (101-111) mmol/L Carbon Dioxide (21-32) mmol/L Anion Gap (6-13) BUN (6-20) mg/dL Creatinine (0.4-1.0) mg/dL Estimated GFR (MDRD) (>89) Glucose (70-100) mg/dL POC Whole Bld Glucose 105 H 104 H (70 - 100) mg/dL Calcium (8.5-10.3) mg/dL Phosphorus (2.5-4.6) mg/dL Magnesium (1.7-2.8) mg/dL Albumin (3.2-5.5) g/dL 01/10/20 01/10/20 Range/Units 07:55 04:53 WBC (4.8-10.8) x10^3/uL RBC (4.20-5.40) 10^6/uL Hgb (12.0-16.0) g/dL Hct (37.0-47.0) % MCV (81.0-99.0) fL MCH (27.0-31.0) pg MCHC (32.0-36.0) g/dL RDW (12.0-15.0) % Plt Count (130-450) 10^3/uL MPV (7.9-10.8) fL Neut # (Auto) (1.5-6.6) 10^3/uL Lymph # (Auto) (1.5-3.5) 10^3/uL Toole # (Auto) (0.0-1.0) 10^3/uL Eos # (Auto) (0.0-0.7) 10^3/uL Baso # (Auto) (0.0-0.1) 10^3/uL Absolute Nucleated RBC x10^3/uL Nucleated RBC % /100WBC Sodium (135-145) mmol/L Potassium (3.5-5.0) mmol/L Chloride (101-111) mmol/L Carbon Dioxide (21-32) mmol/L Anion Gap (6-13) BUN (6-20) mg/dL Creatinine (0.4-1.0) mg/dL Estimated GFR (MDRD) (>89) Glucose (70-100) mg/dL POC Whole Bld Glucose 123 H 130 H (70 - 100) mg/dL Calcium (8.5-10.3) mg/dL Phosphorus (2.5-4.6) mg/dL Magnesium (1.7-2.8) mg/dL Albumin (3.2-5.5) g/dL Assessment/Plan - Problem List (1) New onset seizure Impression: This was felt to be secondary to the hyponatremia. She was given hypertonic saline initially and continued on IV saline. She is also started on Keppra. No evidence of further seizures during his hospitalization. CT the head was unremarkable. CTA of the head and neck did not show any significant vascular disease. MRI was also unremarkable. At this time, we will continue her Keppra. We will likely discharge her on Keppra and have her follow-up with neurology on outpatient basis to discuss the need for continuation of his medication. I once again discussed with her today that she cannot drive given her seizure. Continue with seizure precautions. (2) Community acquired pneumonia Impression: This was found on chest x-ray today which showed a new right lower lobe infiltrate. Initial x-ray on admission was unremarkable. This was obtained given she had some hypoxia with oxygen saturation in the low 90s. She also had a fever today. We have started her empirically on ceftriaxone azithromycin IV w ith today being day 1. We will continue to monitor her fever curve and trend her white count. (3) Fever Impression: This morning she spiked a fever as high as 39.4 C. A chest x-ray was obtained which was concerning for a right lower lobe infiltrate. She started empirically on ceftriaxone azithromycin IV for community-acquired pneumonia. Blood cultures were ordered and also obtained. Her urinalysis on admission was unremarkable and she currently has no symptoms of a urinary tract infection and so this will not be repeated. Given the new seizure this admission, there is concern for possible meningitis but at this time, she has no nuchal rigidity or meningeal signs. Given that chest x-ray finding, we will treat her for community-acquired pneumonia for the time being and monitor the fever curve. If she continues to spike fevers or has any neurologic changes or meningeal signs then we will obtain a lumbar puncture. (4) Hyponatremia Impression: This was hypovolemic hyponatremia and has improved with IV fluids. Her sodium was down to 119 on admission and is now improved to 132. She has corrected a ppropriately during this hospitalization. She was noted initially given hypertonic saline given the concern for seizure being secondary to the hyponatremia. Her hydrochlorothiazide has been discontinued. We will discontinue her IV fluids today and continue to monitor her sodium. (5) Vertigo Impression: She has a history of vertigo and suspect this initial presentation is due to the hyponatremia. Including MRI has been unremarkable. We will continue with Zofran as needed. Her home Xanax is also been resumed. Will consider meclizine if her symptoms persist although at this time it appears to be predominantly nausea with some imbalance. (6) Hypokalemia Impression: We will continue to replace orally. (7) Hypertension Impression: She is currently normotensive. She was started on amlodipine given her history of hypertension and her hydrochlorothiazide was discontinued due to hyponatremia. We will hold the amlodipine for the time being as her blood pressure stable in the 110s systolic.
[2020-01-11] MEDS: AZITHROMYCIN INJ 500 MG in SODIUM CHLORIDE 0.9% 250 ML IV SCH (10:17)
[2020-01-11] MEDS: ACETAMINOPHEN 325 MG TABLET PO PRN (20:27)
[2020-01-12] MEDS: SODIUM CHLORIDE FLUSH 0.9% 10 ML SYRINGE IVP SCH ×3 (00:55→15:49)
[2020-01-12 05:20] LABS: BASOPHILS % (AUTO) 0.3 %; EOSINOPHILS # (AUTO) 0.2 10^3/uL (0.0-0.7); EOSINOPHILS % (AUTO) 2.9 %; HGB - HEMOGLOBIN 11.5 g/dL (12.0-16.0); LYMPHOCYTES # (AUTO) 1.3 10^3/uL (1.5-3.5); LYMPHOCYTES % (AUTO) 22.2 %; MEAN CORPUSCULAR HEMOGLOBIN 32.1 pg (27.0-31.0); MEAN CORPUSCULAR HGB CONC 33.3 g/dL (32.0-36.0); MEAN CORPUSCULAR VOLUME 96.4 fL (81.0-99.0); MEAN PLATELET VOLUME 10.1 fL (7.9-10.8); MONOCYTES # (AUTO) 0.6 10^3/uL (0.0-1.0); MONOCYTES % (AUTO) 10.9 %; NEUTROPHILS # (AUTO) 3.7 10^3/uL (1.5-6.6); NEUTROPHILS % (AUTO) 63.4 %; PLT - PLATELET COUNT 167 10^3/uL (130-450); RED BLOOD COUNT 3.58 10^6/uL (4.20-5.40); RED CELL DISTRIBUTION WIDTH 12.8 % (12.0-15.0); WHITE BLOOD COUNT 5.9 x10^3/uL (4.8-10.8)
[2020-01-12 05:33] LABS: CALCIUM 8.4 mg/dL (8.5-10.3); CREATININE 0.7 mg/dL (0.4-1.0); MAGNESIUM 2.1 mg/dL (1.7-2.8); PHOSPHORUS 2.5 mg/dL (2.5-4.6)
[2020-01-12] MEDS: levETIRAcetam 250 MG TABLET PO SCH ×2 (08:41→20:19)
[2020-01-12] MEDS: ENOXAPARIN 40 MG/0.4 ML SYRINGE SUBQ SCH (08:41)
[2020-01-12] MEDS: amLODIPine 5 MG TABLET PO SCH (08:41)
[2020-01-12] MEDS: ALPRAZolam 0.25 MG TABLET PO SCH (08:42)
[2020-01-12] MEDS: cefTRIAXone 2 GM in SODIUM CHLORIDE 0.9% MINIBAG 100 ML IV SCH (08:42)
--- NOTE | 2020-01-12 09:13 | PROVIDER PROGRESS NOTE ---
Subjective - Prog Note Date Prog Note Date: 01/12/20 - Subjective Subjective: She reports feeling quite a bit better today. She reports no more nausea. Still feels like she has slight balance issues when ambulating but this is also improved. Denies any chest pain, shortness of breath, cough. Continues to deny any neck pain. Current Medications - Current Medications Current Medications: Active Medications Acetaminophen (Tylenol) 650 mg PO Q4HR PRN PRN Reason: Pain 1 to 4 Last Admin: 01/11/20 20:27 Dose: 650 mg Documented by: Alprazolam (Xanax) 0.25 mg PO DAILY [facility] Last Admin: 01/12/20 08:42 Dose: 0.25 mg Documented by: Amlodipine Besylate (Norvasc) 5 mg PO DAILY [facility] Last Admin: 01/12/20 08:41 Dose: 5 mg Documented by: Enoxaparin Sodium (Lovenox) 40 mg SUBQ DAILY [facility] Last Admin: 01/12/20 08:41 Dose: 40 mg Documented by: Azithromycin 500 mg/ Sodium (Chloride) 250 mls @ 250 mls/hr IV Q24H [facility] Stop: 01/13/20 10:59 Last Infusion: 01/11/20 11:30 Dose: Infused Documented by: Ceftriaxone Sodium 2 gm/ (Sodium Chloride) 100 mls @ 200 mls/hr IV DAILY [facility] Stop: 01/15/20 09:29 Last Admin: 01/12/20 08:42 Dose: 200 mls/hr Documented by: Levetiracetam (Keppra) 500 mg PO BID [facility] Last Admin: 01/12/20 08:41 Dose: 500 mg Documented by: Lorazepam (Ativan Inj (Vial)) 2 mg IVP Q2H PRN PRN Reason: Seizure Ondansetron HCl (Zofran Inj) 4 mg IVP Q6HR PRN PRN Reason: Nausea / Vomiting Last Admin: 01/11/20 11:28 Dose: 4 mg Documented by: Prochlorperazine Edisylate (Compazine Inj) 10 mg IVP Q6HR PRN PRN Reason: Nausea / Vomiting Last Admin: 01/10/20 02:32 Dose: 10 mg Documented by: Sodium Chloride (Normal Saline Flush 0.9%) 10 ml IVP 0100,0900,1700 [facility] Last Admin: 01/12/20 08:41 Dose: 10 ml Documented by: Sodium Chloride (Normal Saline Flush 0.9%) 10 ml IVP PRN PRN PRN Reason: NEEDED PER PROVIDER ORDERS Aspirin Chewable [St Raul Aspirin] 81 mg PO DAILY 08/23/19 Triamterene/Hydrochlorothiazid [Triamterene-Hctz 37.5-25 mg Cp] 1 cap PO DAILY 08/23/19 ALPRAZolam [Alprazolam] 0.25 mg PO DAILY 01/10/20 Objective - Vital Signs/Intake & Output Reviewed Vital Signs: Yes Vital Signs: Vital Signs x48h Temp Pulse Resp BP Pulse Ox 01/12/20 08:39 36.9 C 62 19 142/76 H 96 01/12/20 07:31 38 C H 01/12/20 05:00 73 15 137/53 H 94 01/12/20 03:17 37.6 C H 64 15 127/50 L 91 L Intake & Output: Intake & Output 01/09/20 01/10/20 01/11/20 01/12/20 23:59 23:59 23:59 23:59 Intake Total 732.6 3638.233 2140 250 Output Total 3450 2800 900 Balance 732.6 188.233 660 -650 - Objective General Appearance: positive: No acute distress, Alert Eyes Bilateral: positive: Normal inspection ENT: positive: ENT inspection nml Neck: positive: Nml inspection. negative: Stiff neck, Kernig's sign Respiratory: positive: No respiratory distress. negative: Wheezes, Rales Cardiovascular: positive: Regular rate & rhythm, No murmur. negative: Tachycardia, Systolic murmur Abdomen: positive: Non-tender, Nml bowel sounds. negative: Tenderness Skin: positive: Warm, Dry Extremities: positive: Full ROM, No pedal edema Neurologic/Psychiatric: positive: Oriented x3, Motor nml. negative: Disoriented to person, Disoriented to place, Disoriented to time - Lab Results Fish Bones: 01/12/20 04:30 01/12/20 13:55 Other Labs: Lab Results x24hrs 01/12/20 01/12/20 01/10/20 Range/Units 04:30 04:30 04:25 WBC 5.9 (4.8-10.8) x10^3/uL RBC 3.58 L (4.20-5.40) 10^6/uL Hgb 11.5 L (12.0-16.0) g/dL Hct 34.5 L (37.0-47.0) % MCV 96.4 (81.0-99.0) fL MCH 32.1 H (27.0-31.0) pg MCHC 33.3 (32.0-36.0) g/dL RDW 12.8 (12.0-15.0) % Plt Count 167 (130-450) 10^3/uL MPV 10.1 (7.9-10.8) fL Neut # (Auto) 3.7 (1.5-6.6) 10^3/uL Lymph # (Auto) 1.3 L (1.5-3.5) 10^3/uL [place] # (Auto) 0.6 (0.0-1.0) 10^3/uL Eos # (Auto) 0.2 (0.0-0.7) 10^3/uL Baso # (Auto) 0.0 (0.0-0.1) 10^3/uL Absolute Nucleated RBC 0.00 x10^3/uL Nucleated RBC % 0.0 /100WBC Sodium 139 (135-145) mmol/L Potassium 3.7 (3.5-5.0) mmol/L Chloride 105 (101-111) mmol/L Carbon Dioxide 27 (21-32) mmol/L Anion Gap 7.0 (6-13) BUN 9 (6-20) mg/dL Creatinine 0.7 (0.4-1.0) mg/dL Estimated GFR (MDRD) 82 L (>89) Glucose 101 H (70-100) mg/dL Serum Osmolality 248 L (278-305) mOsm/kg Calcium 8.4 L (8.5-10.3) mg/dL Phosphorus 2.5 (2.5-4.6) mg/dL Magnesium 2.1 (1.7-2.8) mg/dL ABX Reporting Has patient been on IV antibiotics over the past 48 hours?: Yes Assessment/Plan - Problem List (1) Fever Impression: She continue to spike low-grade fevers today with a temperature of 38 C. She has no leukocytosis. Urinalysis on admission was unremarkable. Repeat chest x-ray concerning for new infiltrate and so she started on ceftriaxone and azithromycin. But cultures drawn yesterday have been negative to date. She continues to have no meningeal signs and so I doubt meningitis at this time so we will not pursue a lumbar puncture. We will check a CRP and CK today. Co ntinue the antibiotics as mentioned above for community-acquired pneumonia. (2) Community acquired pneumonia Impression: This was evident on repeat chest x-ray during his hospitalization when she spiked a fever. X-ray is concerning for right lower lobe infiltrate. She is been started on ceftriaxone and azithromycin with today being day 2. She is not hypoxic nor tachypneic. Still spiking low-grade fevers. We will keep her on IV antibiotics and continue to monitor. We will likely repeat chest x-ray tomorrow to follow-up with the infiltrate. (3) New onset seizure Impression: This was felt be secondary to the hyponatremia. She was started on Keppra which has been continued. No evidence of seizures during his hospitalization. Imaging was unremarkable. We will continue her on Keppra for the time being but will discuss with neurology prior to discharge regarding continuation of the Keppra. Continue to monitor for seizures while hospitalized. (4) Hyponatremia Impression: This was likely hypovolemic hyponatremia secondary to hydrochlorothiazide. Sodium has improved to 139 this morning. We will discontinue IV fluids at this time. Given the increase compared to yesterday, we will repeat a sodium this afternoon to ensure she is not rapidly increasing. We will discontinue her hydrochlorothiazide on discharge. (5) Vertigo Impression: This has resolved. Although she has a history of vertigo,it was felt this acute episode was due to her hyponatremia. We will continue to monitor while she is hospitalized. (6) Hypertension Impression: Blood pressures been stable systolic in the 120s to 130s on amlodipine. This will be continued. (7) Hypokalemia Impression: This has resolved.
[2020-01-12] MEDS: AZITHROMYCIN INJ 500 MG in SODIUM CHLORIDE 0.9% 250 ML IV SCH (10:05)
[2020-01-12 14:19] LABS: CRP - C-REACTIVE PROTEIN 4.2 mg/dL (0-1.0)
[2020-01-12 14:55] LABS: CREATININE 0.7 mg/dL (0.4-1.0)
[2020-01-12 14:56] LABS: CALCIUM 8.7 mg/dL (8.5-10.3)
[2020-01-12] MEDS: LACTATED RINGERS 1,000 ML IV SCH ×2 (15:45→21:18)
[2020-01-13] MEDS: SODIUM CHLORIDE FLUSH 0.9% 10 ML SYRINGE IVP SCH ×2 (02:14→08:14)
[2020-01-13] MEDS: LACTATED RINGERS 1,000 ML IV SCH (03:30)
[2020-01-13 06:02] LABS: CRP - C-REACTIVE PROTEIN 3.3 mg/dL (0-1.0)
[2020-01-13 07:52] LABS: CALCIUM 8.6 mg/dL (8.5-10.3); CREATININE 0.6 mg/dL (0.4-1.0)
[2020-01-13] MEDS: ENOXAPARIN 40 MG/0.4 ML SYRINGE SUBQ SCH (08:09)
[2020-01-13 08:12] LABS: BASOPHILS % (AUTO) 0.6 %; EOSINOPHILS # (AUTO) 0.2 10^3/uL (0.0-0.7); HGB - HEMOGLOBIN 11.6 g/dL (12.0-16.0); LYMPHOCYTES # (AUTO) 1.4 10^3/uL (1.5-3.5); LYMPHOCYTES % (AUTO) 23.1 %; MEAN CORPUSCULAR HEMOGLOBIN 31.5 pg (27.0-31.0); MEAN CORPUSCULAR VOLUME 95.4 fL (81.0-99.0); MONOCYTES # (AUTO) 0.6 10^3/uL (0.0-1.0); MONOCYTES % (AUTO) 9.8 %; NEUTROPHILS # (AUTO) 3.9 10^3/uL (1.5-6.6); PLT - PLATELET COUNT 178 10^3/uL (130-450); RED BLOOD COUNT 3.68 10^6/uL (4.20-5.40); RED CELL DISTRIBUTION WIDTH 12.9 % (12.0-15.0); WHITE BLOOD COUNT 6.2 x10^3/uL (4.8-10.8)
[2020-01-13] MEDS: levETIRAcetam 250 MG TABLET PO SCH (08:14)
[2020-01-13] MEDS: cefTRIAXone 2 GM in SODIUM CHLORIDE 0.9% MINIBAG 100 ML IV SCH (08:14)
[2020-01-13] MEDS: amLODIPine 5 MG TABLET PO SCH (08:14)
[2020-01-13] MEDS ORDERED: polyethylene glycoL 3350 17 GM PACKET PO SCH (09:00)
[2020-01-13] MEDS: ALPRAZolam 0.25 MG TABLET PO SCH (09:41)
[2020-01-13] MEDS: AZITHROMYCIN INJ 500 MG in SODIUM CHLORIDE 0.9% 250 ML IV SCH (10:10)
--- NOTE | 2020-01-13 11:48 | Discharge Plan ---
Discharge Plan Problem Reviewed?: Yes Disposition: Home, Self Care Condition: Good Prescriptions: cefUROXime axetiL [Ceftin] 500 mg PO Q12H #8 tablet levETIRAcetam [Keppra] 250 mg PO BID #6 tablet amLODIPine [Norvasc] 5 mg PO DAILY #30 tablet Diet: Regular Activity Restrictions: Activity as Tolerated Driving Restrictions: Yes (Please do not drive for the next 6 months unless you are evaluated by a sara) Instruction Topics: Hyponatremia Dc Health Concerns: You were seen in the hospital because you had a seizure which was likely due to low sodium levels. You are treated with IV fluids and your sodium improved. You were started on a medication called Keppra for the seizures. After discussion with the neurologist, they feel that this can be discontinued after you take it for 3 more days at the lower dose of 250 mg twice daily. You cannot drive for the next 6 months until you are evaluated by a neurologist on outpatient basis given you had a seizure. During this hospitalization, you also had a fever and an x-ray was obtained which showed pneumonia. You were treated with IV antibiotics during this hospitalization. Your vital signs are now stable. Please take Ceftin 500 mg twice daily for 2 more days starting January 13 to complete 5 days of antibiotics. Because of the low sodium, please stop taking hydrochlorothiazide and begin taking amlodipine for your high blood pressure. Plan of Treatment: Please take Ceftin 500 mg twice daily beginning January 13 for 2 days. Please take Keppra 2050 mg twice daily for 3 days and then discontinue it. You no longer need this medication as it is felt the seizure was due to the low sodium. Please stop taking hydrochlorothiazide/triamterene. Please begin taking amlodipine 5 mg daily. Care Goals: Please follow-up with your primary care provider within 1 week and asked to be referred to a neurologist. It is also recommended you have a repeat chest x-ray in 2 to 3 weeks to make sure that your pneumonia has resolved. Assessment: Patient expressed understanding of the treatment plan. Additional Instructions or Follow Up instructions: Please return to the emergency department if you develop any worsening shortness of breath, fever, chills. If you have another seizure then also please return to the emergency department. No Smoking: If you smoke, Please STOP! Call for help. Follow-up with: Shantel Godoy PA-C [Primary Care Provider] -
--- NOTE | 2020-01-13 12:49 | XRAY Report ---
PROCEDURE: Chest 1 View X-Ray INDICATIONS: Follow up infiltrate. TECHNIQUE: One view of the chest was acquired. COMPARISON: Chest x-ray, 01/11/2020. FINDINGS: Surgical changes and devices: None. Lungs and pleura: Persistent right lower lobe infiltrate suspicious for pneumonia. Small pleural effu sions are present bilaterally. No pneumothorax. Mediastinum: Mediastinal contours appear normal. Heart size is normal. Bones and chest wall: No suspicious bony lesions. Overlying soft tissues appear unremarkable. IMPRESSION: 1. Right lower lobe pneumonia. 2. Small bilateral pleural effusions. Reviewed by: Mike Craig MD on 01/13/2020 12:48 PM PDT Approved by: Mike Craig MD on 01/13/2020 12:48 PM PDT Station ID: [id number]
[2020-01-13 14:13] VITALS: BP 156/56
--- NOTE | 2020-01-13 14:20 | DISCHARGE SUMMARY ---
"Discharge Summary Admit Date: 01/10/20 Discharge Date: 01/13/20 Discharging Provider: Martell Chávez Primary Care Provider: Shantel Godoy Code Status: Attempt Resuscitation Condition at Discharge: Good Discharge Disposition: 01 Home, Self Care - DIAGNOSES Admission Diagnoses: New onset seizure Hyponatremia Postictal confusion Vertigo Hypokalemia Hypertension Discharge Diagnoses with Status of Each Condition: Fever - resolved. This was felt to be secondary to community-acquired pneumonia as this was the only obvious source of infection. A lumbar puncture was not pursued as she had no meningeal signs. She has not been afebrile for more than 24 hours. Continue treatment for community-acquired pneumonia. Community-acquired pneumonia - improving. Repeat x-ray 2 days after hospitalization when she spiked a fever showed a new right lower lobe infiltrate. She was treated with ceftriaxone and azithromycin IV during this h ospitalization. She was discharged on oral Ceftin for 2 more days to complete 5 days of therapy. Repeat chest x-ray prior to discharge showed stable right lower lobe infiltrate. She was not hypoxic with exertion and was not tachypneic. She was asked to follow-up with her primary care provider for repeat chest x-ray in 2 to 3 weeks to assess for resolution. New onset seizure - resolved. This was felt to be secondary to her hyponatremia. Although she spiked a fever, a lumbar puncture was not pursued as she had no meningeal signs. She initially treated with Keppra during his hospitalization. After discussion with neurology at [facility], it was felt that given she had hyponatremia as the likely cause of her seizure that the Keppra can be tapered off over the next 3 days. She was prescribed 250 mg twice daily for 3 more days and then asked to stop the Keppra. She was informed that she cannot drive the next 6 months until she is evaluated by neurology. Hyponatremia - resolved. This was felt to be hypovolemic hyponatremia secondary to the use of hydrochlorothiazide. Her sodium was as low as 119. This was felt to be the cause of her seizure as well as vertigo and nausea. Given the seizure, she was initially treated with hypertonic saline in the intensive care unit. She was then treated with normal saline. Her sodium has increased appropriately and it is now within normal limits. Her hydrochlorothiazide was discontinued on discharge. Vertigo - resolved. This was felt to be exacerbated by her hyponatremia. Hypertension - stable. Her hydrochlorothiazide/triamterene was discontinued and she was started on amlodipine 5 mg daily. She was asked to follow-up with her primary care provider. Hypokalemia - resolved. - HPI History of Present Illness: This is a 69-year-old female with a past medical history significant for hypertension and prior episodes of vertigo associated with nausea who presents today complaining of nausea and dizziness. tells me that her symptoms began this afternoon and are similar to her prior episodes of vertigo. Her symptoms are exacerbated by movement. Her states he measured her blood pressure at home and is elevated in the 180s. The patient reports having headache as well. tells me that she did have an alcoholic beverage today but only drank about half of it. She does not drink alcohol on a daily basis. She does not smoke and denies any drug use. She has no prior history of seizures. She does have a brother who has a history of seizures. The and the patient is quite healthy and is very active. She walks a few miles each day. History is limited from the patient as she is currently postictal. She denies any chest pain or dyspnea. She does complain of a headache. Her notes that she does have twitching of her right hand which is new after the seizure she had in the emergency department. also tells me she has a history of low sodium in the past although there is never been told exactly why. He states that the patient's primary care doctor called him today and want him to follow-up tomorrow to discuss blood work that was obtained today. He thinks it may be due to the low sodium. In the emergency department, she is on be afebrile temperature of 36.8 C. Her heart is in the 70s. Blood pressure was elevated with systolic in the 170s over 90s. She was not tachypneic and saturating well on room air. Lab significant for sodium of 122 and a potassium of 3.1. Her blood glucose was 142. Alcohol was less than 5. A CT of the head was unremarkable. Plan is for her to be discharged home but then she had a witnessed seizure in the emergency department that was generalized tonic-clonic. She was given lorazepam. She is now postictal. A CTA of the neck was obtained which was negative for dissection. Repeat labs showed her sodium had decreased to 119. Given these findings, medicine was consulted for admission. I did discuss goals of care with the patient's and he feels the patient would want to be a full code. - CONSULTS | PROCEDURES Procedures: CTA of the head showed no acute abnormalities. No large vessel occlusion or hemodynamically significant vascular stenosis. CTA of the neck showed less than 50% stenosis of the origins of the internal carotid arteries bilaterally. Vertebral arteries are fully patent. No dissection or aneurysm. MRI Brain W/ WO was limited due to motion artifact but showed no acute abnormalities. There was minimal small vessel ischemic disease - HOSPITAL COURSE Hospital Course: She was admitted to the intensive care unit after having a new onset seizure whi ch was felt to be secondary to hyponatremia. Her sodium was as low as 119 and so she received 1 hour of hypertonic saline at 50 mL an hour. Her sodium improved to 122 after this and she was continued on normal saline. She was initially loaded with Keppra and this was continued at 500 mg twice daily. CTA of the head and neck were unremarkable. An MRI of the brain was also unremarkable. Her sodium continue to increase appropriately. She spiked a fever 48 hours after hospitalization with a temperature as high as 39.4 C. She was pancultured. Chest x-ray is concerning for new right lower lobe infiltrate which was not present on admission. She started on ceftriaxone and azithromycin. Urinalysis and blood cultures were unremarkable. A lumbar puncture was considered given the fever and the new seizure this admission but she had no meningeal signs and so this was not obtained. She never had a white count and was not hypotensive or tachycardic. After being started on ceftriaxone and azithromycin, she has now been fever free for 24 hour. Given her fever as well, CKs were checked which was elevated at 1000. This was likely due to her seizure and her CKs improved to 600s prior to discharge. She was walked prior to discharge and her oxygen saturation maintained in the mid to high 90s. A repeat/x-ray showed a stable right lower lobe infiltrate. She was asked to follow-up with her primary care provider in 1 week and to obtain a repeat chest x-ray in 2 to 3 weeks to ensure resolution of the right lower lobe infiltrate. Her hydrochlorothiazide was discontinued on discharge and she was started on amlodipine for her hypertension. I also spoke with neurology prior to discharge and they recommended discontinuing her Keppra over the next 3 days as it was likely her seizure was due to hyponatremia. The patient was informed that she cannot drive for the next 6 months until she is evaluated by neurology. - ALLERGIES Allergies/Adverse Reactions: Allergies Allergy/AdvReac Type Severity Reaction Status Date / Time Penicillins AdvReac Nausea Verified 08/23/19 19:12 - MEDICATIONS Home Medications: Ambulatory Orders Medication Instructions Recorded Confirmed Aspirin Chewable [[facility] Raul 81 mg PO DAILY 08/23/19 01/10/20 Aspirin] ALPRAZolam [Alprazolam] 0.25 mg PO DAILY 01/10/20 01/10/20 amLODIPine [Norvasc] 5 mg PO DAILY #30 tablet 01/13/20 cefUROXime axetiL [Ceftin] 500 mg PO Q12H #8 tablet 01/13/20 levETIRAcetam [Keppra] 250 mg PO BID #6 tablet 01/13/20 - PHYSICAL EXAM AT DISCHARGE General Appearance: positive: No acute distress, Alert Eyes Bilateral: positive: Normal inspection, Conjunctivae nml ENT: positive: ENT inspection nml Neck: positive: Nml inspection Respiratory: positive: No respiratory distress, Other (Diminished in right base.). negative: Wheezes, Rales Cardiovascular: positive: Regular rate & rhythm, No murmur. negative: Tachycardia, Bradycardia, Systolic murmur Abdomen: positive: Non-tender, No distention. negative: Tenderness, Guarding, Rebound Skin: positive: No rash, Warm, Dry Extremities: positive: Full ROM, Nml appearance, No pedal edema Neurologic/Psychiatric: positive: Motor nml. negative: Disoriented to person, Disoriented to place, Disoriented to time Physical Exam Other/Comments: Vital Signs - 24 hr 01/12/20 01/12/20 01/13/20 19:19 23:52 05:00 Temperature 37.3 C 37.0 C 37.4 C Heart Rate Heart Rate [ 78 88 73 Monitoring electrodes] Respiratory 19 14 18 Rate Blood Pressure 137/48 H 147/63 H [Left Brachial artery] Blood Pressure 138/52 H [Right Brachial artery] O2 Saturation 93 93 92 01/13/20 01/13/20 01/13/20 08:08 10:45 11:53 Temperature 37.2 C 37.4 C Heart Rate 108 H Heart Rate [ 76 80 Monitoring electrodes] Respiratory 16 18 Rate Blood Pressure [Left Brachial artery] Blood Pressure 140/85 H 147/64 H [Right Brachial artery] O2 Saturation 94 94 01/13/20 13:45 Temperature 36.9 C Heart Rate Heart Rate [ 80 Monitoring electrodes] Respiratory 17 Rate Blood Pressure [Left Brachial artery] Blood Pressure 156/56 H [Right Brachial artery] O2 Saturation 93 Oxygen O2 Source Room air - LABS Result Diagrams: 01/13/20 05:35 01/13/20 05:35 - DIAGNOSTIC IMAGING Diagnostic Imaging Results: Final report reviewed - FOLLOW UP Follow Up: She was asked to follow-up with her primary care provider within 1 week. - TIME SPENT Time Spent in Discharge (Minutes): 35"
[2020-01-13] MEDS ORDERED: levETIRAcetam 250 MG TABLET PO SCH (21:00)
== END 2020-01-13 13:52 | disposition home or self-care (01) | DRG 100 ==
LOC: ED 20:07 → ICU 01-10 00:35
PROVIDERS: ADMIT Internal Medicine; ATTEND Internal Medicine
DX: R56.9 Unspecified convulsions (principal); J18.9 Pneumonia, unspecified organism; R42 Dizziness and giddiness; Z79.82 Long term (current) use of aspirin; E87.1 Hypo-osmolality and hyponatremia; T50.2X5A Adverse effect of carbonic-anhydrase inhibitors, benzothiadiazides and other diuretics, initial encounter; E87.6 Hypokalemia; I10 Essential (primary) hypertension; E86.1 Hypovolemia; M54.5 Low back pain; Z20.828 Contact with and (suspected) exposure to other viral communicable diseases
CPT/HCPCS: 36415; 70496; 70498; 70553; 71045; 80048; 80053; 81003; 82040; 82330; 82533; 82550; 83605; 83690; 83735; 83880; 83930; 83935; 84100; 84300; 84443; 84484; 84550; 85025; 85610; 85651; 85730; 86140; 87040; 87150; 93005; 94761; 96361; 96365; 96375; 99285; 99291; A9270; A9585; J1170; J1650; J2060; J2765; J7040; J7120; Q9967; U0004; 80306; 80320; 81001; 81599; 87086

== ENCOUNTER 2020-01-29 07:53 | Outpatient (CLI) | payer MEDICARE ==
[2020-01-29 08:46] LABS: CALCIUM 9.2 mg/dL (8.5-10.3); CREATININE 0.8 mg/dL (0.4-1.0)
--- NOTE | 2020-01-29 10:42 | XRAY Report ---
PROCEDURE: Chest 2 View X-Ray INDICATIONS: PNEUMONIA TECHNIQUE: 2 view(s) of the chest. COMPARISON: Single view chest 01/13/2020 and 01/11/2020 FINDINGS: Surgical changes and devices: None. Lungs and pleura: No pleural effusions or pneumothorax. Small bilateral pleural fluid collections melara ve resolved in the interval since prior exam obtained 01/13/2020. Lungs are clear. Consolidation in th e right lung base has resolved in the interval since prior exam obtained 01/13/2020 Mediastinum: Mediastinal contours are normal. Heart size is normal. Bones and chest wall: No suspicious bony abnormalities. Soft tissues appear unremarkable. IMPRESSION: No acute cardiopulmonary disease process with resolution of right lower lobe pneumonia and bilateral pleural effusions. Reviewed by: Tisha Carnes MD, PhD on 01/29/2020 10:41 AM PDT Approved by: Tisha Carnes MD, PhD on 01/29/2020 10:41 AM PDT Station ID: [id number]
== END 2020-01-29 07:54 | disposition home or self-care (01) ==
LOC: LAB 07:53
PROVIDERS: ATTEND Physician Assistant Medical
DX: J18.9 Pneumonia, unspecified organism (principal); E87.1 Hypo-osmolality and hyponatremia
CPT/HCPCS: 36415; 71046; 80048

== ENCOUNTER 2020-02-21 11:11 | Outpatient (CLI) | payer MEDICARE ==
[2020-02-21 11:34] LABS: CALCIUM 9.5 mg/dL (8.5-10.3); CREATININE 0.7 mg/dL (0.4-1.0)
== END 2020-02-21 11:12 | disposition home or self-care (01) ==
LOC: LAB 11:11
PROVIDERS: ATTEND Physician Assistant Medical
DX: E87.1 Hypo-osmolality and hyponatremia (principal)
CPT/HCPCS: 36415; 80048

== ENCOUNTER 2020-06-09 11:32 | Outpatient (CLI) | payer MEDICARE ==
[2020-06-09 12:34] LABS: CALCIUM 9.6 mg/dL (8.5-10.3); CREATININE 0.7 mg/dL (0.4-1.0)
== END 2020-06-09 11:33 | disposition home or self-care (01) ==
LOC: LAB 11:32
PROVIDERS: ATTEND Physician Assistant Medical
DX: E87.1 Hypo-osmolality and hyponatremia (principal)
CPT/HCPCS: 36415; 80048

== ENCOUNTER 2020-07-23 09:47 | Outpatient (CLI) | payer MEDICARE ==
--- NOTE | 2020-07-23 11:03 | DEXA Report ---
PROCEDURE: Dexa Spine and/or Hip INDICATIONS: POST MENOPAUSAL TECHNIQUE: Dual energy x-ray absorptiometry (DXA) was performed on a [employer] System. Regions measur ed are the AP Spine, femoral neck, and if needed forearm. COMPARISON: 11/07/2017. FINDINGS: Lumbar Spine: Bone Mineral Density 1.013 g/cm/cm,T score -1.4. There is interval 1.7% decrease since of the lumb ar spine bone mineral density. Left Hip: Bone Mineral Density 0.907 g/cm/cm,T score -0.8, there is interval 0.9% decrease in total left hip b one mineral density. Left Femoral Neck: Bone Mineral Density 0.844 g/cm/cm, T score -1.4. (T score greater or equal to -1.0: NORMAL) (T score from -1.1 to -2.4: OSTEOPENIA) (T score less than or equal to -2.5 to: OSTEOPOROSIS) Impression: Osteopenia. Patients with diagnosis of osteoporosis or osteopenia should have regular bone mineral density assess ment. For those eligible for Medicare, routine testing is allowed once every 2 years. Testing frequ ency can be increased for patients who have rapidly progressing disease or for those who are receivin g medical therapy to restore bone mass. Reviewed by: Fady Johnston MD on 07/23/2020 11:01 AM PST Approved by: Fady Johnston MD on 07/23/2020 11:01 AM PST Station ID: [id number]
== END 2020-07-23 09:48 | disposition home or self-care (01) ==
LOC: DI 09:47
PROVIDERS: ATTEND Physician Assistant Medical
DX: M85.89 Other specified disorders of bone density and structure, multiple sites (principal); Z78.0 Asymptomatic menopausal state

== ENCOUNTER 2020-09-24 08:10 | Outpatient (CLI) | payer MEDICARE ==
[2020-09-24 08:59] LABS: CALCIUM 9.6 mg/dL (8.5-10.3); CREATININE 0.7 mg/dL (0.4-1.0); POTASSIUM 4.5 mmol/L (3.5-5.0)
== END 2020-09-24 08:11 | disposition home or self-care (01) ==
LOC: LAB 08:10
PROVIDERS: ATTEND Physician Assistant Medical
DX: E87.1 Hypo-osmolality and hyponatremia (principal); R56.9 Unspecified convulsions; I10 Essential (primary) hypertension; F41.8 Other specified anxiety disorders
CPT/HCPCS: 36415; 80048; 82607

== ENCOUNTER 2020-12-17 08:00 | Outpatient (CLI) | payer MEDICARE ==
[2020-12-17 08:31] LABS: ALBUMIN 4.6 g/dL (3.2-5.5); ALBUMIN/GLOBULIN RATIO 1.6 (1.0-2.2); ALKALINE PHOSPHATASE 71 IU/L (42-121); ALT ALANINE AMINOTRANSFERASE 22 IU/L (10-60); AST ASPARTATE AMINOTRANSFERASE 22 IU/L (10-42); BILIRUBIN,TOTAL 0.8 mg/dL (0.2-1.0); BUN - BLOOD UREA NITROGEN 23 mg/dL (6-20); CALCIUM 9.1 mg/dL (8.5-10.3); CARBON DIOXIDE - CO2 28 mmol/L (21-32); CHLORIDE 100 mmol/L (101-111); CHOL/HDL RATIO 3.8 (<4.4); CHOLESTEROL 290 mg/dL; CREATININE 0.8 mg/dL (0.4-1.0); GFR - MDRD 71 (>89); GLUCOSE 106 mg/dL (70-100); HDL CHOLESTEROL 77 mg/dL; LDL CHOLESTEROL,CALCULATED 190 mg/dL; LDL/HDL RATIO 2.5 (<4.4); POTASSIUM 4.1 mmol/L (3.5-5.0); SODIUM 138 mmol/L (135-145); TOTAL PROTEIN 7.4 g/dL (6.7-8.2); TRIGLYCERIDES 115 mg/dL; VLDL CHOLESTEROL 23 mg/dL
== END 2020-12-17 08:01 | disposition home or self-care (01) ==
LOC: LAB 08:00
PROVIDERS: ATTEND Physician Assistant Medical
DX: E78.5 Hyperlipidemia, unspecified (principal)
CPT/HCPCS: 36415; 80053; 80061; 83721

== ENCOUNTER 2020-12-24 08:00 | Outpatient (CLI) | payer MEDICARE | END 2020-12-24 23:59 | disposition home or self-care (01) | LOC: LAB.WCP 08:00 | PROVIDERS: ATTEND Physician Assistant Medical | DX: K13.0 Diseases of lips (principal) | CPT/HCPCS: 81599; 87070; 87140; 87181; 87205; 87255 ==

== ENCOUNTER 2021-04-15 08:04 | Outpatient (CLI) | payer MEDICARE ==
[2021-04-15 08:35] LABS: BUN - BLOOD UREA NITROGEN 21 mg/dL (6-20); CALCIUM 9.7 mg/dL (8.5-10.3); CARBON DIOXIDE - CO2 27 mmol/L (21-32); CHLORIDE 102 mmol/L (101-111); CHOL/HDL RATIO 2.4 (<4.4); CHOLESTEROL 214 mg/dL; CREATININE 0.8 mg/dL (0.4-1.0); GFR - MDRD 71 (>89); GLUCOSE 107 mg/dL (70-100); HDL CHOLESTEROL 91 mg/dL; LDL CHOLESTEROL,CALCULATED 108 mg/dL; LDL/HDL RATIO 1.2 (<4.4); POTASSIUM 4.2 mmol/L (3.5-5.0); SODIUM 139 mmol/L (135-145); TRIGLYCERIDES 75 mg/dL; VLDL CHOLESTEROL 15 mg/dL
== END 2021-04-15 08:05 | disposition home or self-care (01) ==
LOC: LAB 08:04
PROVIDERS: ATTEND Physician Assistant Medical
DX: E78.5 Hyperlipidemia, unspecified (principal)
CPT/HCPCS: 36415; 80048; 80061; 83721

== ENCOUNTER 2021-05-08 12:54 | Outpatient (CLI) | payer MEDICARE ==
--- NOTE | 2021-05-11 08:49 | Mammography Report ---
BILATERAL DIGITAL SCREENING MAMMOGRAM 3D/2D: 05/08/2021 CLINICAL: Routine screening. Comparison is made to exams dated: 07/24/2019 mammogram, 04/25/2018 mammogram, 01/31/2017 mammogram, mammogram, 08/26/2014 mammogram, and 08/21/2013 mammogram - [facility]. There are scattered fibroglandular elements in both breasts. There is a 6 mm oval high density mass with a spiculated margin in the right breast at 8 o'clock post erior depth. This is more prominent and increased in size. No other significant masses, calcifications, or other findings are seen in either breast. IMPRESSION: INCOMPLETE: NEEDS ADDITIONAL IMAGING EVALUATION The 6 mm oval high density mass in the right breast is indeterminate. A diagnostic mammogram and ult rasound is recommended. This exam was interpreted at Station ID: [id number]. NOTE: For mammograms, a report in lay terms will be sent to the patient. Approximately 15% of breast malignancies will not be visualized mammographically. In the management of a palpable breast mass, a negative mammogram must not discourage biopsy of a clinically suspicious lesion. Electronically Signed By: Cristina rao/:05/08/2021 14:40:45 ACR BI-RADS Category 0: Incomplete 3340F PARENCHYMAL PATTERN: (A) - The breast(s) demonstrate(s) scattered fibroglandular densities. BI-RADS CATEGORY: (0) - 0 Mammo and [place] [id number] Immediate follow-up LATERALITY: (B)
== END 2021-05-08 12:55 | disposition home or self-care (01) ==
LOC: DI 12:54
DX: Z12.31 Encounter for screening mammogram for malignant neoplasm of breast (principal); R92.8 Other abnormal and inconclusive findings on diagnostic imaging of breast

== ENCOUNTER 2021-08-10 09:11 | Outpatient (CLI) | payer MEDICARE ==
--- NOTE | 2021-08-11 08:18 | Mammography Report ---
UNILATERAL RIGHT DIGITAL DIAGNOSTIC MAMMOGRAM 3D/2D: 08/10/2021 CLINICAL: Patient returns today to evaluate a focal asymmetry in the right breast. Comparison is made to exams dated: 05/08/2021 mammogram, 07/24/2019 mammogram, 04/25/2018 mammogram, 01/31/2017 mammogram, 09/01/2015 mammogram, and 08/26/2014 mammogram - [facility]. Ther e are scattered fibroglandular elements in right breast. There is a 6 mm oval high density mass with a spiculated margin in the right breast at 8 o'clock post erior depth. No other significant masses or calcifications are seen in the breast. IMPRESSION: INCOMPLETE: NEEDS ADDITIONAL IMAGING EVALUATION The 6 mm oval high density mass in the right breast is indeterminate. An ultrasound is recommended. This exam was interpreted at Station ID: [id number]. NOTE: For mammograms, a report in lay terms will be sent to the patient. Approximately 15% of breast malignancies will not be visualized mammographically. In the management of a palpable breast mass, a negative mammogram must not discourage biopsy of a clinically suspicious lesion. Electronically Signed By: Chris Yuan M.D., jr/trell:08/10/2021 10:26:32 ACR BI-RADS Category 0: Incomplete 3340F PARENCHYMAL PATTERN: (A) - The breast(s) demonstrate(s) scattered fibroglandular densities. BI-RADS CATEGORY: (0) - 0 Ultrasound [id number] Immediate follow-up LATERALITY: (B)
--- NOTE | 2021-08-11 08:19 | Ultrasound Report ---
LIMITED ULTRASOUND OF RIGHT BREAST AND AXILLA: 08/10/2021 CLINICAL: Patient returns today to evaluate an asymmetry in the right breast. Comparison is made to exams dated: 08/10/2021 mammogram, 05/08/2021 mammogram, 07/24/2019 mammogram, 04/25/2018 mammogram, 01/31/2017 mammogram, and 09/01/2015 mammogram - [facility]. Color flow ultrasound of the right breast 8-9 o'clock, and axilla regions was performed. Sinclair scale images of the real-time examination were reviewed. There is a 6 mm irregular solid mass in the right breast at 9 o'clock posterior depth. This irregula r solid mass is hypoechoic with posterior acoustic shadowing. Color flow imaging demonstrates that t here is vascularity present. IMPRESSION: SUSPICIOUS OF MALIGNANCY The 6 mm irregular solid mass in the right breast is suspicious of malignancy. An ultrasound guided biopsy is recommended. This exam was interpreted at Station ID: [id number]. Electronically Signed By: Chris Yuan M.D., jr/trell:08/10/2021 10:34:33 Ultrasound BI-RADS: 4 Suspicious for malignancy BI-RADS CATEGORY: (4) - 4 None [id number] Immediate follow-up LATERALITY: ()
== END 2021-08-10 09:12 | disposition home or self-care (01) ==
LOC: DI 09:11
PROVIDERS: ATTEND Physician Assistant Medical
DX: R92.8 Other abnormal and inconclusive findings on diagnostic imaging of breast (principal)

== ENCOUNTER 2021-11-06 08:05 | Outpatient (CLI) | payer MEDICARE | END 2021-11-06 08:06 | disposition home or self-care (01) | LOC: LAB 08:05 | PROVIDERS: ATTEND Surgery | DX: Z01.812 Encounter for preprocedural laboratory examination (principal); C50.911 Malignant neoplasm of unspecified site of right female breast; Z20.822 Contact with and (suspected) exposure to COVID-19 ==

== ENCOUNTER 2021-11-09 10:57 | Day surgery (SDC) | payer MEDICARE ==
[~2021-11-09 10:57] MED LIST: LIDOCAINE-MPF 1% 10 ML AMP ONE
[2021-11-09] MEDS ORDERED: LACTATED RINGERS 1,000 ML IV ONE (11:31)
[2021-11-09] MEDS ORDERED: CEFAZOLIN SODIUM IN 0.9 % NACL 2 GM/50 ML BAG IV ONE (12:10)
[2021-11-09] MEDS ORDERED: LIDOCAINE MPF 2%-EPI 1:200000 20 ML VIAL ONE (12:31)
[2021-11-09] MEDS ORDERED: BUPIVACAINE 0.25% PF 30 ML VIAL ONE (12:31)
[2021-11-09] MEDS ORDERED: NALOXONE 0.4 MG/ML VIAL IVP PRN (13:55)
[2021-11-09] MEDS ORDERED: ATROPINE ABBOJECT 1 MG/10 ML SYRINGE IVP PRN (13:55)
[2021-11-09] MEDS ORDERED: MORPHINE 2 MG/ML CARPUJECT IVP PRN (13:55)
[2021-11-09] MEDS ORDERED: fentaNYL 100 MCG/2 ML VIAL IVP PRN (13:55)
[2021-11-09] MEDS ORDERED: ONDANSETRON 4 MG/2 ML VIAL IVP PRN ×2 (13:55→15:25)
[2021-11-09] MEDS ORDERED: HYDROmorphone 0.5 MG/0.5 ML SYRINGE IVP PRN (13:55)
[2021-11-09] MEDS ORDERED: ePHEDrine 50 MG/ML VIAL IVP PRN (13:55)
--- NOTE | 2021-11-09 13:55 | ANESTHESIA ---
Pre-Anesthesia VS, & Labs - Diagnosis R breast CA - Procedure R Breast lumpectomy Vital Signs: Temp Pulse Resp BP Pulse Ox 36.9 C 80 15 157/70 H 98 11/09/21 11:30 11/09/21 11:30 11/09/21 11:30 11/09/21 11:30 11/09/21 11:30 Height: 5 ft 6 in Weight (kg): 66.1 kg Body Mass Index: 23.5 BMI Classification: Healthy weight - NPO >8 hours - Is Patient ?: No Home Medications and Allergies Home Medications: Ambulatory Orders Cholecalciferol (Vitamin D3) [Vitamin D3] 50 mcg PO DAILY 11/02/21 Clobetasol 0.05% Oint [Temovate 0.05% Oint] 1 applic TOP DAILY PRN 11/02/21 Krill/Om-3/Dha/Epa/Phospho/Ast [Krill Oil 500 mg Softgel] 1 each PO DAILY 11/02/21 Magnesium 250 mg PO DAILY 11/02/21 Rosuvastatin Calcium [Crestor] 5 mg PO DAILY 11/02/21 Aspirin Chewable [St Raul Aspirin] 81 mg PO DAILY 08/23/19 Cholecalciferol (Vitamin D3) [Vitamin D3] 50 mcg PO DAILY 11/02/21 Clobetasol 0.05% Oint [Temovate 0.05% Oint] 1 applic TOP DAILY PRN 11/02/21 Krill/Om-3/Dha/Epa/Phospho/Ast [Krill Oil 500 mg Softgel] 1 each PO DAILY 11/02/21 Magnesium 250 mg PO DAILY 11/02/21 Rosuvastatin Calcium [Crestor] 5 mg PO DAILY 11/02/21 Allergies/Adverse Reactions: Allergies Allergy/AdvReac Type Severity Reaction Status Date / Time Penicillins AdvReac Nausea Verified 11/09/21 11:53 Anes History & Medical History - Anesthetic History Anesthesia Complications: reports: No previous complications Family history of Anesthesia Complications: Denies Family history of Malignant Hyperthermia: Denies - Medical History Cardiovascular: reports: Hypertension, High cholesterol Pulmonary: reports: None Gastrointestinal: reports: None Urinary: reports: None Neuro: reports: Other Musculoskeletal: reports: Osteoarthritis Endocrine/Autoimmune: reports: None Skin: reports: Psoriasis Smoking Status: Never smoker History of Cancer?: Yes (current R breast CA) - Surgical History General: reports: Colonoscopy Gynecologic: reports: Oophrectomy Exam General: Alert, Oriented x3, Cooperative Dental: WNL Mouth Openin Fingerbreadth Neck Mobility: Normal Mallampati classification: II Thyromental Distance: 4-6 cm Respiratory: Lungs clear Cardiovascular: Regular rate Plan Anesthesia Type: General Consent for Procedure(s) Verified and Reviewed: Yes Code Status: Attempt Resuscitation ASA classification: 3-Severe systemic disease Is this case an emergency?: No
[2021-11-09] MEDS ORDERED: LACTATED RINGERS 1,000 ML IV SCH (14:00)
[2021-11-09] MEDS ORDERED: MIDAZOLAM 2 MG/2 ML VIAL ONE (14:08)
[2021-11-09] MEDS ORDERED: fentaNYL 100 MCG/2 ML VIAL ONE (14:08)
[2021-11-09] MEDS ORDERED: LIDOCAINE-MPF 2% 5 ML VIAL ONE (14:33)
[2021-11-09] MEDS ORDERED: ONDANSETRON 4 MG/2 ML VIAL ONE ×2 (14:33→15:50)
[2021-11-09] MEDS ORDERED: ROCURONIUM 50 MG/5 ML VIAL ONE (14:33)
[2021-11-09] MEDS ORDERED: DEXAMETHASONE 4 MG/ML VIAL ONE (14:33)
[2021-11-09] MEDS ORDERED: PROPOFOL 200 MG/20 ML VIAL IVP ONE (14:33)
[2021-11-09] MEDS ORDERED: BUPIVACAINE 0.25% PF 30 ML VIAL SUBQ ONE ×3 (14:41)
[2021-11-09] MEDS ORDERED: LIDOCAINE MPF 2%-EPI 1:200000 20 ML VIAL SUBQ ONE ×3 (14:42)
[2021-11-09] MEDS ORDERED: LIDOCAINE-MPF 1% 10 ML AMP SUBQ ONE (15:09)
--- NOTE | 2021-11-09 15:24 | OPERATIVE REPORT ---
Operative Report - General Procedure Date: 11/09/21 Planned Procedure: Right breast lumpectomy and sentinel node biopsy after needle localization and mapping. Pre-Op Diagnosis: Biopsy-proven right breast cancer Procedure Performed: Right breast lumpectomy and sentinel node biopsy after needle localization and mapping. Post Op Diagnosis: Biopsy-proven right breast cancer - Procedure Note Primary Surgeon: Alisha Anesthesia Provider: Raymon Pathology: 1. Haines node number 1-10-second count of 7110 2. Haines node number 2-10-second count of 3235 3. Haines node #3 [id number] count 2087 4. Right breast specimen marked with a short stitch superior, long stitch lateral, and double stitch anterior. IV Fluids (mL): 600 Estimated Blood Loss (mL): 10 Complications: None apparent - Other Other Information/Narrative: After obtaining informed consent, the patient was brought to the operating room and placed in the supine position on the operating table. Following successful induction of general endotracheal anesthesia, appropriate padding of all bony prominences, and placement of appropriate monitors, the right breast was prepped and draped in the standard surgical fashion. A timeout was held per scope protocol. All elements of the surgical safety checklist were followed before, during, and after the procedure. We began the procedure with a sentinel node dissection. The site of the brightest node had been marked in radiology with 2 skin marker axis. The neoprobe was used to identify the site of greatest uptake at level 2 in the patient's axilla. An incision was created over this area of uptake and carried through the skin and subcutaneous tissue to enter the axillary node packet. The first sentinel node was identified. It was noted to be slightly enlarged but otherwise grossly normal in appearance. It was carefully dissected free from surrounding stop structures sharply, all lymphatics and vasculature were addressed with clips prior to division. The node was liberated into the field. 10-second counts are recorded. Survey of the axilla revealed a second target immediately posterior to the first. This node was quite small and normal in appearance. It was carefully dissected free from surrounding stop structures sharply, all lymphatics and vasculature were addressed with clips prior to division. The node was liberated into the field. 10-second counts are recorded. A third sentinel node was identified superior to the second. 10- second counts were recorded. All afferrent and efferent lymphatics and vasculature were addressed prior to division. The node was liberated into the field and passed from the table. 10-second counts were recorded. Background in the axilla was checked and found to be 6-14. Background in the room was 0. The axillary incision was then closed in 2 layers with Vicryl and Monocryl sutures. We turned our attention to the right breast mass. The area over the mass and in the periareolar region was infiltrated with a mixture of local anesthetics to create to field block. A periareolar incision was then created and the mass and associated wire carefully dissected sharply from the subcutaneous tissue anteriorly and from the retromammary bursa posteriorly. The mass was removed in a single piece in a medial to lateral fashion. It was marked with a short stitch superior, long stitch lateral, and double stitch anterior. It was finally liberated sharply and delivered into the field. The wound was checked for hemostasis. It was irrigated again with warm water. The specimen xray was examined and found to contain the target clip and lesion well centered. The wound was then closed in 2 layers with Vicryl and Monocryl sutures. All sponge, needle, and instrument counts were correct at the conclusion of the case. The patient was let awakened anesthesia without difficulty and taken to the postanesthesia care unit in good condition.
[2021-11-09] MEDS ORDERED: oxyCODONE 5 MG TABLET PO PRN (15:25)
[2021-11-09] MEDS ORDERED: ACETAMINOPHEN 325 MG TABLET PO PRN (15:25)
[2021-11-09] MEDS ORDERED: IBUPROFEN 600 MG TABLET PO PRN (15:25)
[2021-11-09] MEDS ORDERED: SUGAMMADEX 200 MG/2 ML VIAL IVP ONE (15:32)
[2021-11-09] MEDS ORDERED: LACTATED RINGERS 400 ML IV ONE (15:37)
[2021-11-09 16:14] VITALS: BP 129/66
--- NOTE | 2021-11-09 17:38 | Nuclear Medicine Report ---
PROCEDURE: Lymph Node Scintigraphy INDICATIONS: RT BREAST CA RADIOPHARMACEUTICAL: 0.5-1.0 mCi Millipore filtered Tc-99m sulfur colloid. TECHNIQUE: The area around the nipple was prepped and draped in a sterile fashion. Tc-99m sulfur colloid was in jected intra-dermally in the outer edge of the areola in the right breast. Images were obtained subs equently. A body contour outline was obtained. FINDINGS: There are 3 lymph node(s) in the ipsilateral axilla. The node closest to the right breast is marked o n the skin and the images for referring physician. IMPRESSION: Right sentinel lymph node mapping for right breast cancer. Reviewed by: Mike Craig MD on 11/09/2021 5:36 PM PDT Approved by: Mike Craig MD on 11/09/2021 5:36 PM PDT Station ID: [id number]
--- NOTE | 2021-11-11 16:43 | Ultrasound Report ---
WIRE LOCALIZATION RIGHT BREAST: 11/11/2021 CLINICAL: Right Breast wire placement. Correlation is made to exams dated: 09/30/2021 breast MRI, 09/04/2021 mammogram, 09/04/2021 ultrasound b [facility], 08/10/2021 ultrasound, 08/10/2021 mammogram, and 05/08/2021 mammogram - [facility]. A wire localization was performed for the mass located in the right breast at 9 o'clock posterior dep th. The skin was prepped in the usual manner. A wire was inserted into the targeted area. IMPRESSION: WIRE LOCALIZATION Wire localization for the mass in the right breast at 9 o'clock posterior depth was successful with n o apparent post procedure complications. This exam was interpreted at Station ID: [id number]. Chris Yuan M.D., jr/trell:11/11/2021 12:52:56 BI-RADS CATEGORY: () - Unspecified - other recall n/a LATERALITY: (B)
== END 2021-11-09 10:58 | disposition home or self-care (01) ==
LOC: DI 10:57
PROVIDERS: ATTEND Surgery
PROC: 07B50ZZ Excision of Right Axillary Lymphatic, Open Approach (ICD-10-PCS; 2021-11-09)
PROC: 0HBT0ZZ Excision of Right Breast, Open Approach (ICD-10-PCS; principal; 2021-11-09 13:45)
DX: D05.11 Intraductal carcinoma in situ of right breast (principal); Z17.0 Estrogen receptor positive status [ER+]; I10 Essential (primary) hypertension; E78.00 Pure hypercholesterolemia, unspecified; Z79.82 Long term (current) use of aspirin; Z79.899 Other long term (current) drug therapy; Z85.828 Personal history of other malignant neoplasm of skin
CPT/HCPCS: 19285; 78195

== ENCOUNTER 2021-11-16 07:37 | Outpatient (CLI) | payer MEDICARE ==
[2021-11-16 08:04] LABS: ALBUMIN 4.2 g/dL (3.2-5.5); ALBUMIN/GLOBULIN RATIO 1.6 (1.0-2.2); ALKALINE PHOSPHATASE 56 IU/L (42-121); ALT ALANINE AMINOTRANSFERASE 16 IU/L (10-60); AST ASPARTATE AMINOTRANSFERASE 17 IU/L (10-42); BILIRUBIN,TOTAL 0.8 mg/dL (0.2-1.0); BUN - BLOOD UREA NITROGEN 21 mg/dL (6-20); CALCIUM 9.2 mg/dL (8.5-10.3); CARBON DIOXIDE - CO2 28 mmol/L (21-32); CHLORIDE 102 mmol/L (101-111); CHOL/HDL RATIO 2.5 (<4.4); CHOLESTEROL 201 mg/dL; CREATININE 0.7 mg/dL (0.4-1.0); GFR - MDRD 82 (>89); GLUCOSE 108 mg/dL (70-100); HDL CHOLESTEROL 80 mg/dL; LDL CHOLESTEROL,CALCULATED 102 mg/dL; LDL/HDL RATIO 1.3 (<4.4); POTASSIUM 4.1 mmol/L (3.5-5.0); SODIUM 139 mmol/L (135-145); TOTAL PROTEIN 6.8 g/dL (6.7-8.2); TRIGLYCERIDES 96 mg/dL; VLDL CHOLESTEROL 19 mg/dL
== END 2021-11-16 07:38 | disposition home or self-care (01) ==
LOC: LAB 07:37
PROVIDERS: ATTEND Physician Assistant Medical
DX: E78.5 Hyperlipidemia, unspecified (principal)
CPT/HCPCS: 36415; 80053; 80061; 83721

== ENCOUNTER 2022-04-19 15:15 | Outpatient (CLI) | payer MEDICARE ==
--- NOTE | 2022-04-20 14:44 | Ultrasound Report ---
PROCEDURE: Carotid Doppler Complete INDICATIONS: CAROTID ARTERY STENOSIS TECHNIQUE: Color and pulse Doppler interrogation was performed of both carotid systems, with image documentation and velocity measurements. COMPARISON: None. FINDINGS: Right side: Brachial blood pressure: 130/52 mm Hg. Common carotid artery peak systolic velocity: 52.9 cm/sec. Internal carotid artery peak systolic velocity: 79.8 cm/sec. Internal carotid artery end diastolic velocity: 20.2 cm/sec. External carotid artery peak systolic velocity: 107 cm/sec. ICA/CCA peak systolic ratio: 1.5 . Sinclair scale imaging description: Atherosclerotic plaque Percent internal carotid artery stenosis: Less than 50 . Vertebral artery: Flow direction is antegrade. Left side: Brachial blood pressure: 122/55 mm Hg. Common carotid artery peak systolic velocity: 53 cm/sec. Internal carotid artery peak systolic velocity: 80 cm/sec. Internal carotid artery end diastolic velocity: 18 cm/sec. External carotid artery peak systolic velocity: 275 cm/sec. ICA/CCA peak systolic ratio: 1.5 . Sinclair scale imaging description: Atherosclerotic plaque Percent internal carotid artery stenosis: Less than 50 . Vertebral artery: Flow direction is antegrade. IMPRESSION: No evidence of hemodynamic significant stenosis, bilateral proximal internal carotid arteries. The estimate of stenosis included in the report of the imaging study was calculated using the NASCET method Reviewed by: Selvin Fisher MD on 04/20/2022 1:42 PM LAURA Approved by: Selvin Fisher MD on 04/20/2022 1:42 PM LAURA Station ID: [id number]
== END 2022-04-19 15:16 | disposition home or self-care (01) ==
LOC: DI 15:15
PROVIDERS: ATTEND Physician Assistant Medical
DX: I65.23 Occlusion and stenosis of bilateral carotid arteries (principal)
CPT/HCPCS: 93880

== ENCOUNTER 2022-05-17 08:03 | Outpatient (CLI) | payer MEDICARE ==
[2022-05-17 08:50] LABS: BASOPHILS # (AUTO) 0.1 10^3/uL (0.0-0.1); BASOPHILS % (AUTO) 0.7 %; EOSINOPHILS # (AUTO) 0.1 10^3/uL (0.0-0.7); HCT - HEMATOCRIT 46.3 % (37.0-47.0); LYMPHOCYTES # (AUTO) 1.7 10^3/uL (1.5-3.5); LYMPHOCYTES % (AUTO) 24.1 %; MEAN CORPUSCULAR HEMOGLOBIN 31.1 pg (27.0-31.0); MEAN CORPUSCULAR HGB CONC 32.4 g/dL (32.0-36.0); MEAN CORPUSCULAR VOLUME 96.1 fL (81.0-99.0); MEAN PLATELET VOLUME 9.9 fL (7.9-10.8); MONOCYTES # (AUTO) 0.5 10^3/uL (0.0-1.0); MONOCYTES % (AUTO) 7.7 %; NEUTROPHILS # (AUTO) 4.5 10^3/uL (1.5-6.6); NEUTROPHILS % (AUTO) 65.2 %; PLT - PLATELET COUNT 237 10^3/uL (130-450); RED BLOOD COUNT 4.82 10^6/uL (4.20-5.40); RED CELL DISTRIBUTION WIDTH 13.3 % (12.0-15.0); WHITE BLOOD COUNT 6.8 x10^3/uL (4.8-10.8)
[2022-05-17 09:24] LABS: ALBUMIN 4.5 g/dL (3.2-5.5); ALBUMIN/GLOBULIN RATIO 1.7 (1.0-2.2); ALKALINE PHOSPHATASE 60 IU/L (42-121); ALT ALANINE AMINOTRANSFERASE 20 IU/L (10-60); AST ASPARTATE AMINOTRANSFERASE 23 IU/L (10-42); BILIRUBIN,TOTAL 1.1 mg/dL (0.2-1.0); BUN - BLOOD UREA NITROGEN 21 mg/dL (6-20); CALCIUM 9.3 mg/dL (8.5-10.3); CARBON DIOXIDE - CO2 26 mmol/L (21-32); CHLORIDE 103 mmol/L (101-111); CHOL/HDL RATIO 2.2 (<4.4); CHOLESTEROL 185 mg/dL; CREATININE 0.7 mg/dL (0.4-1.0); GFR - MDRD 82 (>89); GLUCOSE 111 mg/dL (70-100); HDL CHOLESTEROL 83 mg/dL; LDL CHOLESTEROL,CALCULATED 86 mg/dL; POTASSIUM 4.8 mmol/L (3.5-5.0); SODIUM 138 mmol/L (135-145); TOTAL PROTEIN 7.2 g/dL (6.7-8.2); TRIGLYCERIDES 80 mg/dL; VLDL CHOLESTEROL 16 mg/dL
== END 2022-05-17 08:04 | disposition home or self-care (01) ==
LOC: LAB 08:03
PROVIDERS: ATTEND Physician Assistant Medical
DX: I10 Essential (primary) hypertension (principal); E78.5 Hyperlipidemia, unspecified
CPT/HCPCS: 36415; 80053; 80061; 83721; 85025

== ENCOUNTER 2022-07-21 08:28 | Outpatient (CLI) | payer MEDICARE ==
--- NOTE | 2022-07-21 21:11 | DEXA Report ---
PROCEDURE: Dexa Spine and/or Hip INDICATIONS: POST MENOPAUSAL TECHNIQUE: Dual energy x-ray absorptiometry (DXA) was performed on a [facility] System. Regions measur ed are the AP Spine, femoral neck, and if needed forearm. COMPARISON: 07/23/2020 FINDINGS: Lumbar Spine: Bone Mineral Density 1.071 g/cm/cm,T score -0.9, normal. Previous T score -1.4. Since the prior ex am there has been a significant interval increase in bone mineral density. It is unclear if there has been true interval improvement versus an increase in degenerative changes. Left Femoral Neck: Bone Mineral Density 0.840 g/cm/cm, T score -1.4, osteopenia. Previous T score -1.4. Left Hip: Bone Mineral Density 0.933 g/cm/cm,T score -0.6, normal. Previous T score -0.8. No significant inter william change. (T score greater or equal to -1.0: NORMAL) (T score from -1.1 to -2.4: OSTEOPENIA) (T score less than or equal to -2.5 to: OSTEOPOROSIS) Impression: Osteopenia. Patients with diagnosis of osteoporosis or osteopenia should have regular bone mineral density assess ment. For those eligible for Medicare, routine testing is allowed once every 2 years. Testing frequ ency can be increased for patients who have rapidly progressing disease or for those who are receivin g medical therapy to restore bone mass. Reviewed by: Tarik Johnson MD on 07/21/2022 9:10 PM PST Approved by: Tarik Johnson MD on 07/21/2022 9:10 PM PST Station ID: [id number]
== END 2022-07-21 08:29 | disposition home or self-care (01) ==
LOC: DI 08:28
PROVIDERS: ATTEND Physician Assistant Medical
DX: M85.88 Other specified disorders of bone density and structure, other site (principal)

== ENCOUNTER 2022-12-27 10:20 | Outpatient (CLI) | payer MEDICARE ==
--- NOTE | 2022-12-28 12:53 | Mammography Report ---
BILATERAL DIGITAL DIAGNOSTIC MAMMOGRAM 3D/2D: 12/27/2022 CLINICAL: 12 month follow up of the right breast, due for bilateral imaging. Personal history of righ t breast cancer. Comparison is made to exams dated: 11/11/2021 localization - [facility], 09/30/2021 b reast MRI, 09/04/2021 mammogram - [facility], 08/10/2021 mammogram, 05/08/2021 mammogram, and 2018 mammogram - [facility]. There are scattered areas of fibroglandular density in both breasts (category b / 25%-50% glandular t issue). There are benign post operative changes in the right breast. There is a new focal asymmetry in the left breast at 12 o'clock posterior depth. This is seen in add itional views. No other significant masses, calcifications, or other findings are seen in either breast. IMPRESSION: INCOMPLETE: NEEDS ADDITIONAL IMAGING EVALUATION The new focal asymmetry in the left breast is indeterminate. An ultrasound is recommended. This exam was interpreted at Station ID: [id number]. NOTE: For mammograms, a report in lay terms will be sent to the patient. Approximately 15% of breast malignancies will not be visualized mammographically. In the management of a palpable breast mass, a negative mammogram must not discourage biopsy of a clinically suspicious lesion. Electronically Signed By: Payal gupta/:12/27/2022 11:37:40 ACR BI-RADS Category 0: Incomplete 3340F PARENCHYMAL PATTERN: (A) - The breast(s) demonstrate(s) scattered fibroglandular densities. BI-RADS CATEGORY: (0) - 0 Ultrasound [id number] Immediate follow-up LATERALITY: (B)
== END 2022-12-27 10:21 | disposition home or self-care (01) ==
LOC: DI 10:20
PROVIDERS: ATTEND Family Medicine
DX: D05.11 Intraductal carcinoma in situ of right breast (principal); R92.8 Other abnormal and inconclusive findings on diagnostic imaging of breast

== ENCOUNTER 2022-12-29 12:28 | Outpatient (CLI) | payer MEDICARE ==
--- NOTE | 2022-12-30 10:54 | Ultrasound Report ---
LIMITED ULTRASOUND OF LEFT BREAST: 12/29/2022 CLINICAL: Patient returns today to evaluate an asymmetry in the left breast. Comparison is made to exams dated: 12/27/2022 [facility] [facility], and 05/08/2021 mammogram - [facility]. Color flow ultrasound of the left breast 12 o'clock region was performed. Sinclair scale images of the real-time examination were reviewed. There is a questionable area of irregular breast tissue at 12:00. No definite sonographic correlate t o the mammographic mass. IMPRESSION: SUSPICIOUS OF MALIGNANCY There is no definite abnormality seen in the left breast to correspond with the mammography finding. Stereotactic biopsy is recommended for the mammographic mass previously described. No singificant ax illary findings. This exam was interpreted at Station ID: [id number]. Electronically Signed By: Horacio Hernandez M.D. lc/:12/29/2022 13:42:49 Ultrasound BI-RADS: 4a Low suspicion for malignancy BI-RADS CATEGORY: (4a) - Low Susp Biopsy follow-up [id number] Immediate follow-up LATERALITY: (B)
== END 2022-12-29 12:29 | disposition home or self-care (01) ==
LOC: DI 12:28
PROVIDERS: ATTEND Physician Assistant Medical
DX: D05.11 Intraductal carcinoma in situ of right breast (principal)

== ENCOUNTER 2023-01-19 09:06 | Outpatient (CLI) | payer MEDICARE ==
[2023-01-19] MEDS ORDERED: LIDOCAINE 1%-EPI 1:100000 20 ML MDV ONE (09:14)
[2023-01-19] MEDS ORDERED: LIDOCAINE-MPF 1% 5 ML VIAL ONE (09:15)
[2023-01-19] MEDS ORDERED: LIDOCAINE 1%-EPI 1:100000 20 ML MDV SUBQ ONE (11:04)
[2023-01-19] MEDS ORDERED: LIDOCAINE-MPF 1% 5 ML VIAL TD ONE (11:05)
--- NOTE | 2023-01-21 13:42 | Mammography Report ---
DIGITAL TOMOGRAPHIC MAMMOGRAPHY GUIDED STEREOTACTIC GUIDED BIOPSY LEFT BREAST WITH MARKING DEVICE INS ERTED AND POST DIGITAL MAMMOGRAPHIC IMAGING- POST-PROCEDURE IMAGING FOR MARKER PLACEMENT: 01/19/2023 CLINICAL: Left stereotactic biopsy for focal asymmetry. Personal history of right breast cancer. Correlation is made to exams dated: 12/27/2022 mammogram, 05/08/2021 mammogram, 07/24/2019 mammogram, 04/25/2018 mammogram - [facility], and 09/30/2021 breast MRI - [facility]. A stereotactic guided biopsy was performed for the 0.6 cm asymmetry located in the left breast at 12 o'clock posterior depth. This was described on the previous mammography report. The skin was preppe d in the usual manner. Local anesthetic was administered to the access site. A skin alia was made i n the breast. The abnormality was approached from the craniocaudal aspect using an upright digital t omographic mammography unit. A biopsy needle was placed adjacent to the abnormality under computer g uidance and confirmatory stereotactic mammography images were obtained to document needle placement. Once the needle was documented to be in the correct location, six specimens were obtained using Siem ens. A hourglass clip was inserted into the biopsy cavity. A skin adhesive and a sterile dressing w ere applied to the access site. Post procedure digital mammographic imaging demonstrates the locatio n device at the targeted area. The specimens were sent to the laboratory for pathological analysis. IMPRESSION: STEREOTACTIC GUIDED BIOPSY MALIGNANT Stereotactic guided biopsy of the 0.6 cm asymmetry in the left breast at 12 o'clock posterior depth w as successful with no apparent post procedure complications. Pathology indicates malignant invasive ductal carcinoma (ID). Pathology results are concordant with imaging findings. A surgical/oncologic consultation is recommended. Results and recommendations will be communicated to the ordering provi ceci's office. This exam was interpreted at Station ID: [id number]. Zeke Charles M.D. [facility] [place]:01/21/2023 10:42:41 BI-RADS CATEGORY: () - Unspecified - other recall n/a LATERALITY: (B)
== END 2023-01-19 09:07 | disposition home or self-care (01) ==
LOC: DI 09:06
PROVIDERS: ATTEND Physician Assistant Medical
DX: C50.812 Malignant neoplasm of overlapping sites of left female breast (principal); Z17.0 Estrogen receptor positive status [ER+]
CPT/HCPCS: 19081

== ENCOUNTER 2023-01-24 08:01 | Outpatient (CLI) | payer MEDICARE ==
[2023-01-24 08:19] LABS: BASOPHILS # (AUTO) 0.1 10^3/uL (0.0-0.1); BASOPHILS % (AUTO) 0.9 %; EOSINOPHILS # (AUTO) 0.1 10^3/uL (0.0-0.7); EOSINOPHILS % (AUTO) 2.1 %; HCT - HEMATOCRIT 45.1 % (37.0-47.0); HGB - HEMOGLOBIN 14.7 g/dL (12.0-16.0); LYMPHOCYTES # (AUTO) 1.5 10^3/uL (1.5-3.5); LYMPHOCYTES % (AUTO) 27.2 %; MEAN CORPUSCULAR HEMOGLOBIN 31.3 pg (27.0-31.0); MEAN CORPUSCULAR HGB CONC 32.6 g/dL (32.0-36.0); MEAN CORPUSCULAR VOLUME 96.2 fL (81.0-99.0); MEAN PLATELET VOLUME 10.4 fL (7.9-10.8); MONOCYTES # (AUTO) 0.6 10^3/uL (0.0-1.0); MONOCYTES % (AUTO) 9.9 %; NEUTROPHILS # (AUTO) 3.4 10^3/uL (1.5-6.6); NEUTROPHILS % (AUTO) 59.5 %; PLT - PLATELET COUNT 228 10^3/uL (130-450); RED BLOOD COUNT 4.69 10^6/uL (4.20-5.40); RED CELL DISTRIBUTION WIDTH 12.9 % (12.0-15.0); WHITE BLOOD COUNT 5.7 x10^3/uL (4.8-10.8)
[2023-01-24 08:34] LABS: ALBUMIN/GLOBULIN RATIO 1.4 (1.0-2.2); ALKALINE PHOSPHATASE 55 IU/L (42-121); ALT ALANINE AMINOTRANSFERASE 22 IU/L (10-60); AST ASPARTATE AMINOTRANSFERASE 22 IU/L (10-42); BILIRUBIN,TOTAL 1.1 mg/dL (0.2-1.0); BUN - BLOOD UREA NITROGEN 21 mg/dL (6-20); CALCIUM 8.9 mg/dL (8.5-10.3); CARBON DIOXIDE - CO2 28 mmol/L (21-32); CHLORIDE 105 mmol/L (101-111); CHOLESTEROL 183 mg/dL; CREATININE 0.7 mg/dL (0.4-1.0); GFR - MDRD 82 (>89); GLUCOSE 107 mg/dL (70-100); HDL CHOLESTEROL 90 mg/dL; LDL CHOLESTEROL,CALCULATED 82 mg/dL; LDL/HDL RATIO 0.9 (<4.4); POTASSIUM 4.4 mmol/L (3.5-5.0); SODIUM 141 mmol/L (135-145); TOTAL PROTEIN 6.8 g/dL (6.7-8.2); TRIGLYCERIDES 56 mg/dL; VLDL CHOLESTEROL 11 mg/dL
== END 2023-01-24 08:02 | disposition home or self-care (01) ==
LOC: LAB 08:01
PROVIDERS: ATTEND Physician Assistant Medical
DX: E78.5 Hyperlipidemia, unspecified (principal); I10 Essential (primary) hypertension
CPT/HCPCS: 36415; 80053; 80061; 83721; 85025

== ENCOUNTER 2023-10-22 07:57 | Outpatient (CLI) | payer MEDICARE ==
[2023-10-22 08:23] LABS: BASOPHILS # (AUTO) 0.1 10^3/uL (0.0-0.1); BASOPHILS % (AUTO) 0.8 %; EOSINOPHILS # (AUTO) 0.2 10^3/uL (0.0-0.7); EOSINOPHILS % (AUTO) 2.9 %; HCT - HEMATOCRIT 46.7 % (37.0-47.0); HGB - HEMOGLOBIN 14.8 g/dL (12.0-16.0); LYMPHOCYTES # (AUTO) 1.3 10^3/uL (1.5-3.5); MEAN CORPUSCULAR HEMOGLOBIN 30.6 pg (27.0-31.0); MEAN CORPUSCULAR HGB CONC 31.7 g/dL (32.0-36.0); MEAN CORPUSCULAR VOLUME 96.7 fL (81.0-99.0); MONOCYTES # (AUTO) 0.6 10^3/uL (0.0-1.0); MONOCYTES % (AUTO) 9.7 %; NEUTROPHILS # (AUTO) 4.5 10^3/uL (1.5-6.6); NEUTROPHILS % (AUTO) 67.3 %; PLT - PLATELET COUNT 258 10^3/uL (130-450); RED BLOOD COUNT 4.83 10^6/uL (4.20-5.40); RED CELL DISTRIBUTION WIDTH 12.9 % (12.0-15.0); WHITE BLOOD COUNT 6.6 x10^3/uL (4.8-10.8)
[2023-10-22 08:35] LABS: ALBUMIN 4.2 g/dL (3.2-5.5); ALBUMIN/GLOBULIN RATIO 1.9 (1.0-2.2); ALKALINE PHOSPHATASE 72 IU/L (42-121); ALT ALANINE AMINOTRANSFERASE 14 IU/L (10-60); AST ASPARTATE AMINOTRANSFERASE 17 IU/L (10-42); BILIRUBIN,TOTAL 0.8 mg/dL (0.2-1.0); BUN - BLOOD UREA NITROGEN 15 mg/dL (6-20); CALCIUM 9.7 mg/dL (8.5-10.3); CARBON DIOXIDE - CO2 27 mmol/L (21-32); CHLORIDE 106 mmol/L (101-111); CHOL/HDL RATIO 2.3 (<4.4); CHOLESTEROL 177 mg/dL; CREATININE 0.7 mg/dL (0.6-1.3); GFR - MDRD 82 (>89); GLUCOSE 112 mg/dL (74-104); HDL CHOLESTEROL 76 mg/dL; LDL CHOLESTEROL,CALCULATED 78 mg/dL; POTASSIUM 4.1 mmol/L (3.5-4.5); SODIUM 140 mmol/L (135-145); TOTAL PROTEIN 6.4 g/dL (6.4-8.9); TRIGLYCERIDES 114 mg/dL (48-352); VLDL CHOLESTEROL 23 mg/dL
[2023-10-22 08:47] LABS: THYROID STIMULATING HORMONE 1.96 uIU/mL (0.34-5.60)
[2023-10-22 09:30] LABS: ESTIMATED AVERAGE GLUCOSE 100 mg/dL (70-100); HEMOGLOBIN A1c% 5.1 % (4.27-6.07)
== END 2023-10-22 07:58 | disposition home or self-care (01) ==
LOC: LAB 07:57
PROVIDERS: ATTEND Physician Assistant Medical
DX: E78.5 Hyperlipidemia, unspecified (principal); M85.80 Other specified disorders of bone density and structure, unspecified site; I10 Essential (primary) hypertension; R73.9 Hyperglycemia, unspecified
CPT/HCPCS: 36415; 80053; 80061; 82306; 83036; 83721; 84443; 85025

== ENCOUNTER 2023-10-28 19:11 | Emergency (ER) | payer MEDICARE ==
[2023-10-28 19:52] LABS: BASOPHILS % (AUTO) 0.6 %; EOSINOPHILS # (AUTO) 0.2 10^3/uL (0.0-0.7); EOSINOPHILS % (AUTO) 2.2 %; HCT - HEMATOCRIT 44.1 % (37.0-47.0); HGB - HEMOGLOBIN 14.3 g/dL (12.0-16.0); LYMPHOCYTES # (AUTO) 1.1 10^3/uL (1.5-3.5); LYMPHOCYTES % (AUTO) 15.2 %; MEAN CORPUSCULAR HEMOGLOBIN 30.9 pg (27.0-31.0); MEAN CORPUSCULAR HGB CONC 32.4 g/dL (32.0-36.0); MEAN CORPUSCULAR VOLUME 95.2 fL (81.0-99.0); MONOCYTES # (AUTO) 0.7 10^3/uL (0.0-1.0); MONOCYTES % (AUTO) 10.1 %; NEUTROPHILS # (AUTO) 5.2 10^3/uL (1.5-6.6); NEUTROPHILS % (AUTO) 71.6 %; PLT - PLATELET COUNT 244 10^3/uL (130-450); RED BLOOD COUNT 4.63 10^6/uL (4.20-5.40); RED CELL DISTRIBUTION WIDTH 12.9 % (12.0-15.0); WHITE BLOOD COUNT 7.3 x10^3/uL (4.8-10.8)
[2023-10-28] MEDS: SODIUM CHLORIDE 0.9% 1,000 ML IV STA (20:02)
[2023-10-28 20:07] LABS: ALBUMIN 4.3 g/dL (3.2-5.5); ALBUMIN/GLOBULIN RATIO 1.7 (1.0-2.2); BILIRUBIN,TOTAL 0.4 mg/dL (0.2-1.0); CALCIUM 9.8 mg/dL (8.5-10.3); CREATININE 0.7 mg/dL (0.6-1.3); TOTAL PROTEIN 6.8 g/dL (6.4-8.9)
--- NOTE | 2023-10-28 20:50 | ED Physician Documentation ---
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 patient denies other specific symptoms. she states she is concerned her sodium may be low again. 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, Other : None HEENT: Chronic vision loss Psych: Other Musculoskeletal: Osteoarthritis Derm: Psoriasis Other Past Medical History: hyponatremia; Vertigo; R Salpingectomy - Past Surgical History Past Surgical History: Yes General: Colonoscopy, Other /KNITTING MACHINE TENDER: Oophrectomy - Present Medications Home Medications: Ambulatory Orders Medication Instructions Recorded Confirmed amLODIPine [Norvasc] 5 mg PO DAILY #30 tablet 01/13/20 10/28/23 Krill/Om-3/Dha/Epa/Phospho/Ast 1 each PO DAILY 11/02/21 10/28/23 [Krill Oil 500 mg Softgel] Rosuvastatin Calcium [Crestor] 5 mg PO DAILY 11/02/21 10/28/23 Calcium Carbonate [Calcium] 1,200 mg PO DAILY 03/01/23 10/28/23 ALPRAZolam [Xanax] 0.25 mg PO ONCE PRN 10/28/23 10/28/23 Magnesium 1 tab PO DAILY 10/28/23 10/28/23 - Allergies Allergies/Adverse Reactions: Allergies Allergy/AdvReac Type Severity Reaction Status Date / Time Penicillins AdvReac Nausea Verified 10/28/23 19:20 - Social History Does the pt smoke?: No Smoking Status: Never smoker Does the pt drink ETOH?: Yes Does the pt have substance abuse?: No - Immunizations Immunizations are current?: Yes - POLST Patient has POLST: No PD ED PE NORMAL - Vitals Vital signs reviewed: Yes - General General: Alert and oriented X 3, No acute distress, Well developed/nourished - HEENT HEENT: Atraumatic, PERRL, EOMI - Neck Neck: Supple, no meningeal sign - Cardiac Cardiac: RRR - Respiratory Respiratory: No respiratory distress, Clear bilaterally - Abdomen Abdomen: Non tender, Non distended - Derm Derm: Normal color, Warm and dry - Neuro Neuro: Alert and oriented X 3, agent broker 2-12 intact Eye Opening: Spontaneous Motor: Obeys Commands Verbal: Oriented GCS Score: 15 Results - Vitals Vitals: Vital Signs - 24 hr 10/28/23 10/28/23 10/28/23 19:16 19:31 20:07 Temperature 36.4 C L Heart Rate 80 81 73 Respiratory 20 18 16 Rate Blood Pressure 171/49 H 156/77 H 149/63 H O2 Saturation 100 97 98 Oxygen O2 Source Room air - Labs Labs: Laboratory Tests 10/28/23 10/28/23 19:50 19:50 WBC 7.3 RBC 4.63 Hgb 14.3 Hct 44.1 MCV 95.2 MCH 30.9 MCHC 32.4 RDW 12.9 Plt Count 244 MPV 10.0 Neut # (Auto) 5.2 Lymph # (Auto) 1.1 L [place] # (Auto) 0.7 Eos # (Auto) 0.2 Baso # (Auto) 0.0 Absolute Nucleated RBC 0.00 Nucleated RBC % 0.0 Sodium 139 Potassium 4.0 Chloride 105 Carbon Dioxide 28 Anion Gap 6.0 BUN 13 Creatinine 0.7 Estimated GFR (MDRD) 82 L Glucose 124 H Calcium 9.8 Total Bilirubin 0.4 AST 15 ALT 14 Alkaline Phosphatase 71 Total Protein 6.8 Albumin 4.3 Globulin 2.5 Albumin/Globulin Ratio 1.7 Lipase 18 PD Medical Decision Making - ED course ED course: 73yF p/w amirakiness, found to have normal exam and vitals with exception of mild hypertension. labwork including cbc, abdominal panel is benign. plan to dc home to f/u outpatient with pcp. returnprecautions given. Departure - Departure Disposition: Home, Self Care Clinical Impression: Aneta Condition: Stable Comments: You were seen in the emergency department for medical evaluation. Your labwork and exam was normal. Please follow-up with your primary care provider and return to the emergency department if you have any new or worsening symptoms or other concerns.
[2023-10-28 20:53] VITALS: BP 134/73; O2SAT 97
== END 2023-10-28 20:50 | disposition home or self-care (01) ==
LOC: ED 19:11
DX: R25.1 Tremor, unspecified (principal); I10 Essential (primary) hypertension; E78.00 Pure hypercholesterolemia, unspecified; G40.909 Epilepsy, unspecified, not intractable, without status epilepticus; Z85.3 Personal history of malignant neoplasm of breast
CPT/HCPCS: 36415; 80053; 83690; 85025; 99283